=== PATIENT | female | born 1975 | race African-American/Black ===

== ENCOUNTER 2019-12-14 14:05 | Outpatient (CLI) | payer OTHER, SELFPAY ==
--- NOTE | ~2019-12-14 | XR_ITS ---
XR lumbar spine 2-3V 12/14/2019 14:25 Indication: Low back pain Procedure: 3 views lumbar spine Comparison: 04/01/2019 Findings: There is disc narrowing at L4-5 and L5-S1. There are mild lower lumbar facet degenerative c hange. Vertebral body heights are maintained. No fracture or traumatic malalignment. No evidence for spondylolisthesis. There are gallstones. Pedicles are intact. Sacral foramen are symmetric. Impression: 1: Mild lumbar spondylosis. 2: Cholelithiasis. Reviewed, dictated and finalized at location A. Impression: 1: Mild lumbar spondylosis. 2: Cholelithiasis.
== END 2019-12-14 14:06 | disposition home or self-care (01) ==
PROVIDERS: PCP Family Medicine Adolescent Medicine; Visit Provider Family Medicine
DX: M47.896 Other spondylosis, lumbar region (principal); K80.20 Calculus of gallbladder without cholecystitis without obstruction
CPT/HCPCS: 72100

== ENCOUNTER 2020-02-06 00:46 | Emergency (ER) | payer OTHER, SELFPAY ==
--- NOTE | ~2020-02-06 | CT_ITS ---
EXAMINATION: CT abdomen pelvis w con INDICATION: Left-sided abdominal pain TECHNIQUE: Computed tomographic images of the abdomen and pelvis were obtained after the administrati on of 100 cc of Omnipaque 350 intravenous contrast. The dose-length product (DLP) was 1508.32 mGy-cm. Automated exposure control and iterative reconstruction technique were employed. COMPARISON: None available FINDINGS: The lung bases are clear. The heart size is normal. Stones are present in the nondistended gallbladder. The liver, spleen, pancreas, and adrenal glands are normal. The kidneys are unremarkable . The appendix is normal. No pathologically enlarged abdominal or pelvic lymph nodes are identified. There is no free intraperitoneal gas or evidence of bowel obstruction. IMPRESSION: 1. No CT correlate for the patient's symptoms. 2. Cholelithiasis without evidence of cholecystitis. Reviewed, dictated and finalized at location A.
[2020-02-06 01:03] VITALS: BP 166/109; PULSE 111; RESP 20; TEMP 36.8; O2SAT 98
--- NOTE | 2020-02-06 02:09 | ECG_ITS ---
Measurements Intervals [place] Rate: 93 P: 48 [place]: 171 QRS: 32 QRSD: 85 T: 37 QT: 359 QTc: 449 Interpretive Statements SINUS RHYTHM LOW QRS VOLTAGE IN PRECORDIAL LEADS BORDERLINE ECG Electronically Signed On 02-06-2020 9:25:16 CDT by Colin Mccullough D.O.
[2020-02-06 02:36] LABS: Basophils Absolute Auto 0.1 K/mm3 (0.0-0.1); Basophils Percent Auto 0.5 % (0.2-1.2); Eosinophils Absolute Auto 0.1 K/mm3 (0-0.3); Eosinophils Percent Auto 1.3 % (0-4.4); Hematocrit 35.8 % (37.0-47.0); Immature Granulocyte Absolute 0.04 K/mm3 (0.00-0.031); Immature Granulocyte Percent A 0.4 % (0-0.5); Lymphocytes Absolute Auto 2.32 K/mm3 (0.9-3.2); Lymphocytes Percent Auto 21.3 % (18.3-44.2); Mean Corpuscular HGB Conc 30.7 g/dl (32-36); Mean Corpuscular Hemoglobin 24.8 pg (26-34); Mean Corpuscular Volume 80.6 fl (80-100); Mean Platelet Volume 10.7 fl (7.4-10.4); Monocytes Absolute Auto 0.3 K/mm3 (0.1-0.6); Neutrophils Percent Auto 73.5 % (45.5-73.1); Platelet Count Result 248 k/mm3 (150-375); Red Blood Count 4.44 M/mm3 (4.2-5.4); Red Cell Distribution Width 15.4 % (11.5-14.5); White Blood Count 10.9 K/mm3 (4.5-10.0)
[2020-02-06 02:43] VITALS: BP 157/91; PULSE 95; RESP 16; O2SAT 96
[2020-02-06 02:48] LABS: Alanine Aminotransferase 12 U/L (4-35); Albumin Level 4.2 g/dL (3.5-5.1); Alkaline Phosphatase 61 U/L (38-126); Aspartate Amino Transferase 16 U/L (14-36); Bilirubin,Total 0.2 mg/dL (0.2-1.3); Blood Urea Nitrogen 14 mg/dL (7-17); Calcium 9.8 mg/dL (8.4-10.2); Carbon Dioxide 28 mmol/L (22-30); Chloride 103 mmol/L (98-107); Estimated CRCL calculation 127 ml/min; Estimated Glomerular Filt Rate > 60; Glucose 129 mg/dL (65-105); Lipase 33 U/L (23-300); Potassium 3.7 mmol/L (3.4-5.0); Sodium 137 mmol/L (137-145)
--- NOTE | 2020-02-06 02:54 | ED.ABDPAIN ---
HPI - Abdominal Pain General Chief Complaint: Abdominal Pain Stated Complaint: pain LFA and L flank Time Seen by Provider: 02/06/20 01:42 History of Present Illness HPI narrative: Patient is a 44-year-old female who presents ER with 2 issues. She reports she developed some sudden onset left mid abdominal pain this evening. Radiates into her back. No association with diarrhea or urinary frequency or urgency. Patient then tried to go to bed and then woke up with some cramping left forearm pain. That lasted for approximately 30 seconds. No known trauma to her arm. She does report she is been very busy over the last 3 days cleaning her home and detailing her car and taking longer to the laundromat. Patient cannot describe any aggravating or alleviating factors for other for areas of discomfort. Patient then reports upon arrival to the ER she developed some cramping in her left breast right at the sternum that is reproducible with palpation. Related Data Home Medications Medication Instructions Recorded Confirmed cetirizine 10 mg PO 02/06/20 ergocalciferol (vitamin D2) 1,250 mcg PO 02/06/20 hydrochlorothiazide 25 mg PO 02/06/20 hydrocodone-acetaminophen 1 tablet PO 02/06/20 irbesartan 150 mg 02/06/20 metformin 1,000 mg PO 02/06/20 Allergies Allergy/AdvReac Type Severity Reaction Status Date / Time No Known Allergies Allergy Verified 02/06/20 00:52 Review of Systems Review of Systems: All systems reviewed & are unremarkable except as noted in HPI and below Constitutional: Constitutional: Denies chills, Denies fever(s) and Denies weakness ENT: Denies nasal congestion and Denies sore throat Cardiovascular: Cardiovascular: Reports chest pain and Denies radiating jaw, neck or arm pain Respiratory: Respiratory: Denies cough, Denies dyspnea and Denies wheezing Gastrointestinal: Gastrointestinal: Reports abdominal pain, Denies diarrhea, Denies nausea and Denies vomiting Genitourinary: Genitourinary: Denies hematuria, Denies dysuria and Denies urinary incontinence Musculoskeletal: Musculoskeletal: Denies back pain, Denies joint swelling and Reports muscle cramps PMFSH Past Medical History Medical History (Updated 02/06/20 @ 05:09 by Андрей Mahan MD) Cholelithiasis Diabetes type 2, controlled Hypertension Surgical History Surgical History (Updated 02/06/20 @ 02:58 by Андрей Mahan MD) H/O section Social History Social History (Updated 02/06/20 @ 02:58 by Андрей Mahan MD) Smoking status: Former smoker Exam Narrative: Exam Narrative: GENERAL: Well-appearing, morbidly obese, and in no acute distress. HEAD: Normocephalic, atraumatic. ENT: Mucous membranes moist. CHEST: Clear to auscultation. No respiratory distress. Mild anterior chest wall pain left sternal border adjacent to the breast. HEART: Regular rate and rhythm. Normal peripheral pulses. ABDOMEN: Soft, mild left mid abdominal tenderness without guarding, nondistended EXTREMITIES: Normal range of motion. No edema. SKIN: Warm, dry, no rash. NEURO: Alert and oriented x3. PSYCH: Normal mood and affect. Course Course Emergency Course: Patient informed of results. Discharge home. Vital Signs Vital signs: Vital Signs Temperature 98.2 F 02/06/20 01:03 Pulse Rate 111 H 02/06/20 01:03 Respiratory Rate 20 02/06/20 01:03 Blood Pressure 166/109 H 02/06/20 01:03 Pulse Oximetry 98 02/06/20 01:03 Temperature 98.2 F 02/06/20 01:03 Pulse Rate 97 02/06/20 03:53 Respiratory Rate 19 02/06/20 03:53 Blood Pressure 142/79 H 02/06/20 03:53 Pulse Oximetry 96 02/06/20 02:43 MDM - Abdominal Pain Lab Data Result diagrams: 02/06/20 02:29 02/06/20 02:29 Labs: Lab Results 02/06/20 02/06/20 Range/Units 02:29 02:29 WBC 10.9 H (4.5-10.0) K/mm3 RBC 4.44 (4.2-5.4) M/mm3 Hgb 11.0 L (12.0-15.0) g/dL Hct 35.8 L (37.0-47.0) % MCV 80.6 (80-100)
[2020-02-06 03:00] LABS: Troponin I < 0.012 ng/mL (0.000-0.034)
[2020-02-06 03:53] VITALS: BP 142/79; PULSE 97; RESP 19
[2020-02-06 05:17] VITALS: BP 129/90; PULSE 99; RESP 18; O2SAT 96
== END 2020-02-06 05:18 | disposition home or self-care (01) ==
PROVIDERS: Emergency Provider Emergency Medicine; PCP Family Medicine Adolescent Medicine
DX: R10.9 Unspecified abdominal pain (principal); R25.2 Cramp and spasm; I10 Essential (primary) hypertension; E11.9 Type 2 diabetes mellitus without complications; Z79.84 Long term (current) use of oral hypoglycemic drugs
CPT/HCPCS: 36415; 74177; 80053; 81025; 83690; 84484; 85025; 93005; 99284; Q9967

== ENCOUNTER 2021-01-26 08:46 | Outpatient (RCR) | payer OTHER, SELFPAY ==
--- NOTE | 2021-01-26 10:36 | PTOPEVAL ---
PHYSICAL THERAPY EVALUATION AND PLAN OF CARE 01-26-21 Thank you for referring Lex Myers to [facility], for the diagnosis of lumbago with B sciatica.? She is scheduled to be seen for therapy? 2 x/week for 4 weeks. Please review, sign, date and return this plan of care FERMIN. I agree with and certify that the following plan of care is medically necessary. Referring Physician Date Attending Provider: Nhung Leach MD *PT Outpatient Evaluation Document 01/26/21 09:05 PJ (Rec: 01/26/21 10:18 PJ [id number]) Past Medical History Source of Past Medical History Recalled from Previous Visit, Confirmed with Patient/Family Cardiovascular History Hx Hypertension Yes: meds control Respiratory History Hx Sleep Apnea Yes: CPAP- not using Gastrointestinal History Hx Gall Bladder Disease Yes Musculoskeletal History Hx Back Pain Yes: chronic Hx Other Musculoskeletal Disorders Yes: pain in legs, get bolts of pain, comes and goes- different positions Endocrine History Hx Diabetes Yes: meds control HEENT History Hx Other HEENT Disorders Yes: wear glasses Integumentary History Hx Skin Disorders No Significant History Reproductive History Hx Section Yes: x3 Psychosocial History Hx Anxiety Yes Hx Depression Yes Other History Hx Other Medical Conditions Yes: obesity-reports wt gain lately; have not had COVID vaccine Evaluation Information Problem Diagnosis lumbago with B sciatica Onset November 20, 2020 Subjective Information have had chronic back pain, in Query Text:As Reported By Patient/ November started having more Family pain in legs; no trauma or injury to to back; Diagnostic Tests X-Rays For This Problem Yes: narrowing L 4-5-S1, mild DDD Previous Treatments Previous Treatments For This Problem have had PT in past ~ 5 years ago, did water exercises Prior Level of Function Activity Level (Last 3 Months) Occupation not working outside of home Hand Dominance Right Activity of Daily Living Ability Independent Indoor/Home Mobility Independent Community Mobility Independent Stairs Ability Independent Functional Cognition (Planning, Shopping Independent , Taking Medications) Cooking Yes Cleaning Yes Laundry Yes Shopping Yes Driving
--- NOTE | 2021-07-27 15:16 | PCPTNOTE ---
PHYSICAL THERAPY DISCHARGE 07-26-21 LATE ENTRY FOR January 2021 Attending Provider: Nhung LeachMD Patient:Lex Myers Date of :1975 Patient has not returned for any further treatments since 01/26/2021, therefore she will be discharged at this time. Thank you for referring this patient to [facility]. Please review, sign, date and return this discharge summary FERMIN. I have been updated about the patient's current status and I agree with discharge from the above service at this time. Referring Physician Date
== END 2021-04-17 11:47 | disposition home or self-care (01) ==
LOC: ANHPT 08:46
PROVIDERS: PCP Family Medicine; Visit Provider Family Medicine
DX: M54.40 Lumbago with sciatica, unspecified side (principal)
CPT/HCPCS: 97161

== ENCOUNTER 2021-05-16 11:49 | Emergency (ER) | payer OTHER, SELFPAY ==
--- NOTE | ~2021-05-16 | XR_ITS ---
EXAMINATION: XR chest 2V DATE: 05/16/2021 12:34 INDICATION: Tachycardia and lower limb swelling/edema. TECHNIQUE: PA and lateral views of the chest were obtained. COMPARISON: Chest radiograph dated 07/21/2019 FINDINGS: The lungs remain clear with no focal airspace opacities, pulmonary edema, pleural effusion or pneumot horax. The cardiomediastinal silhouette is normal. Mild thoracic spondylosis. IMPRESSION: 1. No acute cardiopulmonary disease. Reviewed, dictated and finalized at location B.
--- NOTE | ~2021-05-16 | US_ITS ---
EXAMINATION: US venous doppler LE EXAM DATE: 05/16/2021 12:31 INDICATION: Bilateral leg pain. TECHNIQUE: Multiple grayscale, color flow and Doppler images of the lower extremity deep venous syste ms bilaterally were obtained and reviewed. There is no prior study for comparison. FINDINGS: Right side: The right common femoral, femoral and profunda veins demonstrate normal color flow, respi ratory variation, augmentation and compressibility. Compressibility, color flow confirmed within the right popliteal, posterior tibial, peroneal, and greater saphenous veins. Left side: The left common femoral, femoral and profunda veins demonstrate normal color flow, respira tory variation, augmentation and compressibility. Compressibility, color flow confirmed within the l eft popliteal, posterior tibial, peroneal, and greater saphenous veins. IMPRESSION: 1. No lower extremity deep venous thrombosis bilaterally. Reviewed, dictated and finalized at location A.
--- NOTE | ~2021-05-16 | CT_ITS ---
EXAMINATION: CT lumbar spine wo [facility] EXAM DATE: 05/16/2021 12:57 INDICATION: Low back pain, lower extremity paresthesias. Electric shooting pain in both legs for paulina ral months. TECHNIQUE: Spiral CT of the lumbar spine was performed without contrast. Axial, coronal and sagittal images lumbar spine were reviewed. The dose-length product (DLP) for this examination was 1201.23 m Gy-cm. The exposure was tailored according to patient size (auto mA exposure control), and iterativ e reconstruction (ASIR) was used as additional dose reduction technique. Correlation is made to x-ray 12/14/2027. FINDINGS: The vertebral bodies are aligned in the AP dimension. Mild diffuse lumbar disc disease. The re are no acute fractures identified. No spondylolysis or endplate erosive change. Paraspinal soft ti ssue is unremarkable. Level by level evaluation: T12-L1: Disc does not extend beyond the endplate margin. Facet arthropathy: None. Neural foraminal stenosis: No stenosis. Central canal stenosis: No stenosis. L1-L2: Disc does not extend beyond the endplate margin. Facet arthropathy: Mild right. Neural foraminal stenosis: No stenosis. Central canal stenosis: No stenosis. L2-L3: There is a mild diffuse disc bulge. Facet arthropathy: None. Neural foraminal stenosis: Mild right. Central canal stenosis: No stenosis. L3-L4: There is a mild diffuse disc bulge. Facet arthropathy: Mild. Neural foraminal stenosis: Mild to moderate right, mild left. Central canal stenosis: Mild. L4-L5: There is a mild diffuse disc bulge. Facet arthropathy: Mild to moderate. Neural foraminal stenosis: Moderate right, mild to moderate left. Central canal stenosis: Mild to moderate. L5-S1: There is a mild diffuse disc bulge. Facet arthropathy: Mild. Neural foraminal stenosis: Mild bilateral. Central canal stenosis: Mild. IMPRESSION: 1. L4-5 moderate right neural foraminal stenosis. 2. Less spondylosis other levels. Reviewed, dictated and finalized at location A.
[2021-05-16 11:53] VITALS: BP 133/85; PULSE 100; RESP 16; TEMP 36.4; O2SAT 98
--- NOTE | 2021-05-16 11:58 | ECG_ITS ---
Measurements Intervals [place] Rate: 100 P: 55 GA: 136 QRS: 36 QRSD: 85 T: 50 QT: 358 QTc: 463 Interpretive Statements SINUS TACHYCARDIA LOW QRS VOLTAGE IN PRECORDIAL LEADS MINIMAL Q WAVES- INFERIOR LEADS BORDERLINE ECG Electronically Signed On 05-16-2021 12:59:45 CDT by Colin Mccullough D.O.
--- NOTE | 2021-05-16 12:07 | PC.NURSE ---
pt out of dept in wheelchair to US.
--- NOTE | 2021-05-16 12:34 | ED.EXTPRO ---
HPI - Extremity Problem General Chief complaint: Extremity Problem,Nontraumatic Stated complaint: bilat. leg pain. L leg pain Time Seen by Provider: 05/16/21 12:18 Source: patient Mode of arrival: ambulatory Limitations: no limitations History of Present Illness HPI Narrative: This is a 45-year-old female that presents to the emergency department for lower extremity pain present over the last couple of months. Reports she feels intermittent shooting nervelike pains in her lower extremities bilaterally. Does have history of low back problems with sciatica. Reports that she noticed when she was outside and exerting herself that her heart rate was in the 120s. She came inside and rested and her heart rate went down to 100. Was sent in by her primary for further evaluation. Denies fever, shortness of breath, lower extremity edema, or erythema. Related Data Home Medications Medication Instructions Recorded Confirmed cetirizine 10 mg PO 02/06/20 ergocalciferol (vitamin D2) 1,250 mcg PO 02/06/20 hydrochlorothiazide 25 mg PO 02/06/20 hydrocodone-acetaminophen 1 tablet PO 02/06/20 irbesartan 150 mg 02/06/20 metformin 1,000 mg PO 02/06/20 Allergies Allergy/AdvReac Type Severity Reaction Status Date / Time No Known Allergies Allergy Verified 05/16/21 13:02 Review of Systems Review of Systems: CONSTITUTIONAL: Denies fever CARDIOVASCULAR: Denies chest pain, or edema. RESPIRATORY: Denies dyspnea. SKIN: Denies rash MUSCULOSKELETAL: Reports joint pain, and myalgia. NEUROLOGIC: Denies numbness All systems reviewed & are unremarkable except as noted in HPI and below PMFSH Past Medical History Medical History (Updated 05/16/21 @ 14:04 by Janee Deleon PA-C) Cholelithiasis Diabetes type 2, controlled Hypertension Surgical History Surgical History (Updated 02/06/20 @ 02:58 by Андрей Mahan MD) H/O section Social History Social History (Updated 02/06/20 @ 02:58 by Андрей Mahan MD) Smoking status: Former smoker Exam Narrative: GENERAL: Well-appearing, obese, and in no acute distress. HEAD: Normocephalic, atraumatic. EYES: EOMI. CHEST: Clear to auscultation. No respiratory distress. No wheezes rales or rhonchi HEART: Regular rate and rhythm. No murmur heard. Normal peripheral pulses. ABDOMEN: Soft, nontender, nondistended, normal active bowel sounds. EXTREMITIES: Normal range of motion. No edema. Strength equal in bilateral lower extremities (5/5). Normal DP pulses SKIN: Warm, dry, no rash. NEURO: No focal deficits. Alert and oriented x3. PSYCH: Normal mood and affect Course Vital Signs Vital signs: Vital Signs Temperature 97.5 F L 05/16/21 11:53 Pulse Rate 100 05/16/21 11:53 Respiratory Rate 16 05/16/21 11:53 Blood Pressure 133/85 05/16/21 11:53 Pulse Oximetry 98 05/16/21 11:53 Temperature 97.5 F L 05/16/21 11:53 Pulse Rate 100 05/16/21 11:53 Respiratory Rate 16 05/16/21 11:53 Blood Pressure 133/85 05/16/21 11:53 Pulse Oximetry 98 05/16/21 11:53 MDM - Extremity (Nontraumatic) MDM Narrative Medical decision making narrative: Patient presents to the emergency department for bilateral lower extremity pain present intermittent over the last couple of months. Reports it feels like a nerve pain. She is neurologically intact. She does have history of problems with her low back. No recent injury or trauma. Her vitals are stable. CBC does show microcytic anemia with hemoglobin of 9.2. Patient does have history of anemia, reports heavy menstrual cycles. Metabolic panel without concerning findings. BNP is normal. Bilateral lower extremity venous Doppler without evidence of DVT. Chest x-ray without acute cardiopulmonary abnormality. CT scan lumbar spine shows L4/5 moderate right neural foraminal stenosis. EKG without concerning findings. Patient was updated on case findings. She is to follow-up with her primary care doctor for further evalua
[2021-05-16 13:24] LABS: Basophils Percent Auto 0.4 % (0.2-1.2); Eosinophils Absolute Auto 0.1 K/mm3 (0-0.3); Eosinophils Percent Auto 0.9 % (0-4.4); Hematocrit 31.7 % (37.0-47.0); Hemoglobin 9.2 g/dL (12.0-15.0); Immature Granulocyte Absolute 0.02 K/mm3 (0.00-0.031); Immature Granulocyte Percent A 0.2 % (0-0.5); Lymphocytes Absolute Auto 1.84 K/mm3 (0.9-3.2); Lymphocytes Percent Auto 20.2 % (18.3-44.2); Mean Corpuscular Hemoglobin 22.2 pg (26-34); Mean Corpuscular Volume 76.6 fl (80-100); Mean Platelet Volume 10.1 fl (7.4-10.4); Monocytes Absolute Auto 0.4 K/mm3 (0.1-0.6); Monocytes Percent Auto 4.8 % (2.6-8.5); Neutrophils Absolute Auto 6.7 K/mm3 (1.3-6.7); Neutrophils Percent Auto 73.5 % (45.5-73.1); Platelet Count Result 280 k/mm3 (150-375); Red Blood Count 4.14 M/mm3 (4.2-5.4); White Blood Count 9.1 K/mm3 (4.5-10.0)
--- NOTE | 2021-05-16 13:36 | PC.NURSE ---
pt states she will sign something that she isn't . states her tubes are tied .
[2021-05-16 13:37] LABS: Anion Gap 9 mmol/L (8-16); Blood Urea Nitrogen 23 mg/dL (7-17); Calcium 9.1 mg/dL (8.4-10.2); Carbon Dioxide 24 mmol/L (22-30); Chloride 101 mmol/L (98-107); Estimated CRCL calculation 83 ml/min; Estimated Glomerular Filt Rate > 60; Glucose 130 mg/dL (65-110); Potassium 3.9 mmol/L (3.4-5.0); Sodium 134 mmol/L (137-145)
[2021-05-16 13:44] LABS: INR 0.9; Prothrombin Time 11.9 Seconds (11.1-14.7)
[2021-05-16 13:45] LABS: Partial Thromboplastin Time 23.5 SECONDS (22.3-36.8)
[2021-05-16 13:47] LABS: NT Pro B Type Natriuretic Pept 19 pg/mL (5-100)
[2021-05-16 14:47] LABS: Hypochromasia 1+ (NORMAL); Platelet Estimate Adequate (Adequate); Poikilocytosis 1+ (NORMAL)
== END 2021-05-16 14:22 | disposition home or self-care (01) ==
PROVIDERS: Physician Assistant; Emergency Provider Emergency Medicine; PCP Family Medicine
DX: M54.16 Radiculopathy, lumbar region (principal); D64.9 Anemia, unspecified; R00.0 Tachycardia, unspecified; E11.9 Type 2 diabetes mellitus without complications; Z79.84 Long term (current) use of oral hypoglycemic drugs; I10 Essential (primary) hypertension
CPT/HCPCS: 36415; 71046; 72131; 80048; 83880; 85025; 85610; 85730; 93005; 93970; 99284

== ENCOUNTER 2021-07-02 14:08 | Outpatient (CLI) | payer OTHER, SELFPAY ==
--- NOTE | ~2021-07-02 | XR_ITS ---
XR foot LT min 3V DATE: 07/02/2021 14:40 INDICATION: Bilateral foot pain TECHNIQUE: 3 weightbearing views COMPARISON: None FINDINGS: There is prominent plantar and posterior calcaneal enthesopathy. There is pes planus. There is hallux valgus and bunion deformity. There is osteoarthritis at the first metatarsophalangeal joint. IMPRESSION: Hallux valgus and bunion deformity Pes planus Calcaneal enthesopathy Reviewed, dictated and finalized at location B.
--- NOTE | ~2021-07-02 | XR_ITS ---
XR foot RT min 3V DATE: 07/02/2021 14:40 INDICATION: Bilateral foot pain TECHNIQUE: 3 weightbearing views COMPARISON: None FINDINGS: There is pes planus. There is prominent plantar and moderate posterior calcaneal enthesopathy. Mild hallux valgus. There is mild osteoarthritic change at the first metatarsophalangeal joint. No fracture or dislocation, periosteal reaction or bone destruction. IMPRESSION: Pes planus Hallux valgus Plantar and posterior calcaneal enthesopathy Mild osteoarthritis at first metatarsophalangeal joint Reviewed, dictated and finalized at location B.
== END 2021-07-02 14:09 | disposition home or self-care (01) ==
LOC: ANHIMG 14:13
PROVIDERS: PCP Family Medicine; Visit Provider Podiatrist Foot & Ankle Surgery
DX: M20.11 Hallux valgus (acquired), right foot (principal); M19.071 Primary osteoarthritis, right ankle and foot; M77.31 Calcaneal spur, right foot; M20.12 Hallux valgus (acquired), left foot; M77.32 Calcaneal spur, left foot; M21.42 Flat foot [pes planus] (acquired), left foot; M21.41 Flat foot [pes planus] (acquired), right foot
CPT/HCPCS: 73630

== ENCOUNTER 2021-07-10 13:08 | Emergency (ER) | payer OTHER, SELFPAY ==
--- NOTE | ~2021-07-10 | XR_ITS ---
EXAMINATION: XR knee LT 3V DATE: 07/10/2021 15:24 INDICATION: Left knee pain TECHNIQUE: Three views of the left knee were obtained. COMPARISON: 02/20/2007 FINDINGS: Alignment is normal. No fracture or osteochondral lesion. There is mild tricompartmental os teoarthritis characterized by tiny marginal osteophytes. No joint effusion/synovitis. Soft tissues a re unremarkable. IMPRESSION: 1. No acute osseous abnormality. Reviewed, dictated and finalized at location A.
[2021-07-10 13:22] VITALS: BP 135/88; PULSE 100; RESP 20; TEMP 36.6; O2SAT 99
--- NOTE | 2021-07-10 15:42 | ED.GENADULT ---
HPI - General Adult General Chief complaint: Extremity Injury, Lower Stated complaint: Pain in my leg Time Seen by Provider: 07/10/21 14:13 Source: patient, RN notes reviewed and old records reviewed Mode of arrival: ambulatory Limitations: no limitations History of Present Illness HPI narrative: Patient is a 45-year-old female who presents with lateral left knee pain described as a stabbing intermittent pain patient has seen primary care for this have bilateral Dopplers and blood work performed has been taken hydrocodone with minimal improvement pain does not radiate made worse with activity and movement Related Data Home Medications Medication Instructions Recorded Confirmed cetirizine 10 mg PO 02/06/20 ergocalciferol (vitamin D2) 1,250 mcg PO 02/06/20 hydrochlorothiazide 25 mg PO 02/06/20 hydrocodone-acetaminophen 1 tablet PO 02/06/20 irbesartan 150 mg 02/06/20 metformin 1,000 mg PO 02/06/20 Allergies Allergy/AdvReac Type Severity Reaction Status Date / Time No Known Allergies Allergy Verified 05/16/21 13:02 Review of Systems Review of Systems: All systems reviewed & are unremarkable except as noted in HPI and below PMFSH Past Medical History Medical History Cholelithiasis Diabetes type 2, controlled Hypertension Surgical History Surgical History H/O section Social History Social History Smoking status: Former smoker Exam Narrative: GENERAL: Well-appearing, well-nourished, and in no acute distress. HEAD: Normocephalic, atraumatic. EYES: PERRLA and EOMI. ENT: Nares clear, no rhinorrhea or epistaxis. Mucous membranes moist. CHEST: Clear to auscultation. No respiratory distress. No wheezes rales or rhonchi HEART: Regular rate and rhythm. No murmur heard. Normal peripheral pulses. EXTREMITIES: Normal range of motion. No edema. Point tenderness of the lateral aspect of the left knee joint no deformities noted remainder of extremity and knee nontender SKIN: Warm, dry, no rash. NEURO: No focal deficits. Alert and oriented x3. Neurovascularly intact. Capillary refill less than 2 seconds PSYCH: Normal mood and affect. Course Course Emergency Course: Patient in the room nondistressed will be referred to primary care and orthopedics for evaluation of her knee pain she is afebrile nontoxic-appearing ABCs and vital signs intact and stable Vital Signs Vital signs: Vital Signs Temperature 97.9 F 07/10/21 13:22 Pulse Rate 100 07/10/21 13:22 Respiratory Rate 20 07/10/21 13:22 Blood Pressure 135/88 07/10/21 13:22 Pulse Oximetry 99 07/10/21 13:22 Temperature 97.9 F 07/10/21 13:22 Pulse Rate 100 07/10/21 13:22 Respiratory Rate 20 07/10/21 13:22 Blood Pressure 135/88 07/10/21 13:22 Pulse Oximetry 99 07/10/21 13:22 Medical Decision Making MDM Narrative Medical decision making narrative: Patients injury or pain is consistent with musculoskeletal etiology. No signs of neurological or vascular compromise on exam. Compartments and tisues are soft without signs of compartment syndrome. Pain is felt appropriate for further evaluation on an outpatient basis. Vital Signs Vital Signs: Vital Signs Temperature 97.9 F 07/10/21 13:22 Pulse Rate 100 07/10/21 13:22 Respiratory Rate 20 07/10/21 13:22 Blood Pressure 135/88 07/10/21 13:22 Pulse Oximetry 99 07/10/21 13:22 Temperature 97.9 F 07/10/21 13:22 Pulse Rate 100 07/10/21 13:22 Respiratory Rate 20 07/10/21 13:22 Blood Pressure 135/88 07/10/21 13:22 Pulse Oximetry 99 07/10/21 13:22 Imaging Data Radiologist's impression: ITS Impressions Knee X-Ray 07/10/21 15:30 IMPRESSION: 1. No acute osseous abnormality. Discharge Plan Discharge Clinical Impression: Acute pain of left knee
[2021-07-10 16:12] VITALS: BP 118/76; PULSE 84; RESP 14; O2SAT 100
== END 2021-07-10 16:14 | disposition home or self-care (01) ==
PROVIDERS: Emergency Provider Emergency Medicine; PCP Family Medicine
DX: M25.562 Pain in left knee (principal); E11.9 Type 2 diabetes mellitus without complications; I10 Essential (primary) hypertension; Z79.84 Long term (current) use of oral hypoglycemic drugs
CPT/HCPCS: 73562; 99283

== ENCOUNTER 2022-03-06 22:29 | Emergency (ER) | payer OTHER, SELFPAY ==
[2022-03-06 22:31] VITALS: BP 124/78; PULSE 98; RESP 18; TEMP 36.4; O2SAT 98
--- NOTE | 2022-03-06 23:17 | ECG_ITS ---
Measurements Intervals [place] Rate: 99 P: 49 OR: 167 QRS: 29 QRSD: 86 T: 48 QT: 367 QTc: 473 Interpretive Statements SINUS RHYTHM COMPARED TO ECG 05/16/2021 12:00:38 SINUS RHYTHM NOW PRESENT Electronically Signed On 03-07-2022 11:15:01 CDT by Vickie Herring MD
[2022-03-07 00:29] LABS: Basophils Percent Auto 0.3 % (0.2-1.2); Eosinophils Absolute Auto 0.1 K/mm3 (0-0.3); Eosinophils Percent Auto 1.2 % (0-4.4); Hematocrit 39.8 % (37.0-47.0); Hemoglobin 12.5 g/dL (12.0-15.0); Immature Granulocyte Absolute 0.03 K/mm3 (0.00-0.031); Immature Granulocyte Percent A 0.3 % (0-0.5); Lymphocytes Absolute Auto 2.59 K/mm3 (0.9-3.2); Lymphocytes Percent Auto 25.7 % (18.3-44.2); Mean Corpuscular HGB Conc 31.4 g/dl (32-36); Mean Corpuscular Volume 82.7 fl (80-100); Mean Platelet Volume 11.2 fl (7.4-10.4); Monocytes Absolute Auto 0.5 K/mm3 (0.1-0.6); Monocytes Percent Auto 5.3 % (2.6-8.5); Neutrophils Absolute Auto 6.8 K/mm3 (1.3-6.7); Neutrophils Percent Auto 67.2 % (45.5-73.1); Platelet Count Result 253 k/mm3 (150-375); Red Blood Count 4.81 M/mm3 (4.2-5.4); Red Cell Distribution Width 15.3 % (11.5-14.5); White Blood Count 10.1 K/mm3 (4.5-10.0)
[2022-03-07 00:35] LABS: Anion Gap 8 mmol/L (8-16); Blood Urea Nitrogen 42 mg/dL (7-17); Carbon Dioxide 24 mmol/L (22-30); Chloride 101 mmol/L (98-107); Estimated CRCL calculation 68 ml/min; Estimated Glomerular Filt Rate 59; Glucose 117 mg/dL (65-110); Potassium 3.4 mmol/L (3.4-5.0); Sodium 133 mmol/L (137-145)
[2022-03-07 00:47] LABS: Troponin I < 0.012 ng/mL (0.000-0.034)
--- NOTE | 2022-03-07 00:47 | ED.GENADULT ---
HPI - General Adult General Chief complaint: Arrhythmia/Palpitations Stated complaint: increased HR Time Seen by Provider: 03/06/22 22:42 Source: patient and family Mode of arrival: ambulatory Limitations: no limitations History of Present Illness HPI narrative: 46-year-old with a history of hypertension here with complaints of elevated heart rate since last few days. Patient states that her primary doctor has recently changed her blood pressure medication. Patient is presently on losartan and Dyazide she denies any fever or chills. No history of nausea or vomiting. Related Data Home Medications Medication Instructions Recorded Confirmed cetirizine 10 mg tablet 10 mg PO 02/06/20 ergocalciferol (vitamin D2) 1,250 1,250 mcg PO 02/06/20 mcg (50,000 unit) capsule hydrochlorothiazide 25 mg tablet 25 mg PO 02/06/20 hydrocodone 5 mg-acetaminophen 325 1 tablet PO 02/06/20 mg tablet irbesartan 150 mg tablet 150 mg 02/06/20 metformin 1,000 mg tablet 1,000 mg PO 02/06/20 Allergies Allergy/AdvReac Type Severity Reaction Status Date / Time No Known Allergies Allergy Verified 03/06/22 23:12 Review of Systems Review of Systems: All systems reviewed & are unremarkable except as noted in HPI and below Constitutional: Constitutional: Reports no additional constitutional complaints Eyes: Eyes: Reports no additional eye complaints ENT: Reports system reviewed and no additional complaints, except as documented Cardiovascular: Cardiovascular: Reports no additional cardiovascular complaints Respiratory: Respiratory: Reports no additional respiratory complaints Gastrointestinal: Gastrointestinal: Reports no additional gastrointestinal complaints Musculoskeletal: Musculoskeletal: Reports no additional musculoskeletal complaints Neurologic: Reports system reviewed and no additional complaints, except as documented [facility] Past Medical History Medical History Cholelithiasis Diabetes type 2, controlled Hypertension Sleep apnea Surgical History Surgical History H/O section x3 (1997, 1999, 2015) History of tubal ligation (~05/01/16) Social History Social History Smoking status: Former smoker Alcohol intake: current Exam Narrative: GENERAL: Well-appearing, well-nourished, and in no acute distress. HEAD: Normocephalic, atraumatic. EYES: PERRLA and EOMI.. NECK: Supple. CHEST: Clear to auscultation. No respiratory distress. HEART: Regular rate and rhythm. No murmur heard. Normal peripheral pulses. ABDOMEN: Soft, nontender, nondistended, normal active bowel sounds. EXTREMITIES: Normal range of motion. No edema. SKIN: Warm, dry, no rash. NEURO: No focal deficits. Alert and oriented x3. PSYCH: Normal mood and affect. Course Course Emergency Course: Inform patient about her lab work. Patient is hesitant to take medication. I recommended her to follow-up with her primary doctor tomorrow for medication adjustment. I have been in the room 3 times tried to explain to the patient about her lab work, about the medication, heart rate I advised her again to follow-up with her primary doctor in the next few days to recheck her blood pressure and heart rate Vital Signs Vital signs: Vital Signs Temperature 36.4 C 03/06/22 22:31 Pulse Rate 98 03/06/22 22:31 Respiratory Rate 18 03/06/22 22:31 Blood Pressure 124/78 03/06/22 22:31 Pulse Oximetry 98 03/06/22 22:31 Temperature 36.4 C 03/06/22 22:31 Pulse Rate 98 03/06/22 22:31 Respiratory Rate 18 03/06/22 22:31 Blood Pressure 124/78 03/06/22 22:31 Pulse Oximetry 98 03/06/22 22:31 Medical Decision Making Vital Signs Vital Signs: Vital Signs Temperature 36.4 C 03/06/22 22:31 Pulse Rate 98 03/06/22 22:31 Respiratory Rate 18 03/06/22 22:31 Bloo
--- NOTE | 2022-03-07 01:03 | PC.NURSE ---
per EDP radha no dose of metoprolol needed
[2022-03-07 01:18] VITALS: BP 118/79; PULSE 105; RESP 16; O2SAT 98
== END 2022-03-07 01:25 | disposition home or self-care (01) ==
PROVIDERS: Emergency Provider Family Medicine; PCP Family Medicine
DX: R00.2 Palpitations (principal); E11.9 Type 2 diabetes mellitus without complications; I10 Essential (primary) hypertension; Z79.84 Long term (current) use of oral hypoglycemic drugs
CPT/HCPCS: 36415; 80048; 84484; 85025; 93005; 99284

== ENCOUNTER 2022-06-08 21:12 | Emergency (ER) | payer OTHER, SELFPAY ==
[2022-06-08 21:16] VITALS: BP 138/82; PULSE 96; RESP 16; TEMP 36.9; O2SAT 97
--- NOTE | 2022-06-08 22:04 | ED.GENADULT ---
HPI - General Adult General Chief complaint: Urogenital-Female Stated complaint: vaginal issues Time Seen by Provider: 06/08/22 21:14 History of Present Illness HPI narrative: 46-year-old female presents the emergency room for a rash on her vagina. Patient states her and her used a new lubricant and she feels that may be the offending agent. Patient also states that she was out in the yard collecting brush and she might have been exposed poison hao. Has not tried any topicals or Benadryl for her symptoms. Related Data Home Medications Medication Instructions Recorded Confirmed ergocalciferol (vitamin D2) 1,250 1,250 mcg PO 02/06/20 mcg (50,000 unit) capsule hydrocodone 5 mg-acetaminophen 325 1 tablet PO 02/06/20 mg tablet atorvastatin 40 mg tablet mg 06/08/22 06/08/22 gabapentin 300 mg capsule mg 06/08/22 triamterene 75 tablet 06/08/22 mg-hydrochlorothiazide 50 mg tablet Allergies Allergy/AdvReac Type Severity Reaction Status Date / Time No Known Allergies Allergy Verified 06/08/22 21:45 Review of Systems Review of Systems: CONSTITUTIONAL: Denies fever, chills, or sweats. EYES: Denies visual changes, redness, or discharge. ENT: Denies rhinorrhea, congestion, sore throat, or otalgia. CARDIOVASCULAR: Denies chest pain, palpitations, or edema. RESPIRATORY: Denies cough or dyspnea. GASTROINTESTINAL: Denies abdominal pain, nausea, vomiting, or diarrhea. GENITOURINARY: Denies dysuria or hematuria. SKIN: Reports rash to her genitalia MUSCULOSKELETAL: Denies back pain, joint pain, or myalgia. NEUROLOGIC: Denies headache, numbness, dizziness, or weakness. PSYCHIATRIC: Denies anxiety or depression. [facility] Past Medical History Medical History Cholelithiasis Diabetes type 2, controlled Hypertension Sleep apnea Surgical History Surgical History H/O section x3 (1997, 1999, 2015) History of tubal ligation (~05/01/16) Social History Social History Smoking status: Former smoker Alcohol intake: current Exam Narrative: GENERAL: Well-appearing, well-nourished, no physical limitations, and in no acute distress. HEAD: Normocephalic, atraumatic. EYES: Conjunctivae normal, PERRLA and EOMI. CHEST: Clear to auscultation. No respiratory distress. No wheezes rales or rhonchi. No tenderness. HEART: Regular rate and rhythm. No murmur heard. Normal peripheral pulses. : Normal external female exam. BACK: No CVA tenderness; No cervical/thoracic/lumbar tenderness, step-offs, bony abnormality; FROM EXTREMITIES: Normal range of motion. No edema. No clubbing or cyanosis SKIN: Erythematous macular rash noted to the pubic area and to the left lateral side of the vagina NEURO: No focal deficits. Alert and oriented x3. MAEW. CN's II-XI intact bilaterally, normal gait PSYCH: Cooperative. Normal mood and affect. Course Vital Signs Vital signs: Vital Signs Temperature 36.9 C 06/08/22 21:16 Pulse Rate 96 06/08/22 21:16 Respiratory Rate 16 06/08/22 21:16 Blood Pressure 138/82 06/08/22 21:16 Pulse Oximetry 97 06/08/22 21:16 Oxygen Delivery Room Air 06/08/22 21:16 Temperature 36.9 C 06/08/22 21:16 Pulse Rate 96 06/08/22 21:16 Respiratory Rate 16 06/08/22 21:16 Blood Pressure 138/82 06/08/22 21:16 Pulse Oximetry 97 06/08/22 21:16 Oxygen Delivery Room Air 06/08/22 21:16 Medical Decision Making Vital Signs Vital Signs: Vital Signs Temperature 36.9 C 06/08/22 21:16 Pulse Rate 96 06/08/22 21:16 Respiratory Rate 16 06/08/22 21:16 Blood Pressure 138/82 06/08/22 21:16 Pulse Oximetry 97 06/08/22 21:16 Oxygen Delivery Room Air 06/08/22 21:16 Temperature 36.9 C 06/08/22 21:16 Pulse Rate 96 06/08/22 21:16 Respiratory Rate 16 06/08/22 21:16 Blood Pressure 13
[2022-06-08 22:25] VITALS: BP 127/90; PULSE 96; RESP 15; O2SAT 97
[2022-06-08] MEDS: diphenhydrAMINE HCl CAP 25 MG CAPSULE 50 MG PO (22:27)
== END 2022-06-08 22:30 | disposition home or self-care (01) ==
PROVIDERS: Emergency Provider Nurse Practitioner Family; PCP Family Medicine
DX: L25.9 Unspecified contact dermatitis, unspecified cause (principal); I10 Essential (primary) hypertension; E11.9 Type 2 diabetes mellitus without complications; G47.30 Sleep apnea, unspecified; Z87.891 Personal history of nicotine dependence
CPT/HCPCS: 99283; A9270

== ENCOUNTER 2022-10-27 01:03 | Emergency (ER) | payer OTHER, SELFPAY ==
--- NOTE | ~2022-10-27 | XR_ITS ---
EXAMINATION: XR chest 1V portable INDICATION: Fever TECHNIQUE: Portable AP chest at 0145 hours COMPARISON: 04/26/2021 FINDINGS: The lungs are free of acute opacities. No pleural effusion or pneumothorax. The cardiomedia stinal silhouette is normal. IMPRESSION: 1. No acute cardiopulmonary abnormality. Reviewed, dictated and finalized at location A. E[facility]OST
[2022-10-27 01:06] VITALS: BP 142/91; PULSE 97; RESP 17; TEMP 36.1; O2SAT 97
[2022-10-27 01:13] VITALS: TEMP 36.9
--- NOTE | 2022-10-27 01:33 | ED.GENADULT ---
HPI - General Adult General Chief complaint: Fever Stated complaint: Fever, sent by PCP for blood work Time Seen by Provider: 10/27/22 01:16 History of Present Illness HPI narrative: 47-year-old female presenting to the emergency department for evaluation of low-grade fever and body aches. Patient states the symptoms have been ongoing for approximately the last 2 days. Patient reports that she was having issues with body aches previously and did stop taking her losartan. Patient discussed her symptoms with her primary care physician and she was deferred to the emergency department for a UA and labs. Patient states that she does have intermittent cough. Patient does report body aches. Patient has been having a low-grade fever. Patient does have a history of cholelithiasis, type 2 diabetes, hypertension and sleep apnea Related Data Home Medications Medication Instructions Recorded Confirmed ergocalciferol (vitamin D2) 1,250 1,250 mcg PO 02/06/20 mcg (50,000 unit) capsule hydrocodone 5 mg-acetaminophen 325 1 tablet PO 02/06/20 mg tablet atorvastatin 40 mg tablet mg 06/08/22 06/08/22 gabapentin 300 mg capsule mg 06/08/22 triamterene 75 tablet 06/08/22 mg-hydrochlorothiazide 50 mg tablet Allergies Allergy/AdvReac Type Severity Reaction Status Date / Time No Known Allergies Allergy Verified 10/27/22 01:09 Review of Systems Review of Systems: CONSTITUTIONAL: Denies fever, chills, or sweats. EYES: Denies visual changes, redness, or discharge. ENT: Denies rhinorrhea, congestion, sore throat, or otalgia. CARDIOVASCULAR: Denies chest pain, palpitations, or edema. RESPIRATORY: Denies cough or dyspnea. GASTROINTESTINAL: Denies abdominal pain, nausea, vomiting, or diarrhea. GENITOURINARY: Denies dysuria or hematuria. SKIN: Denies rash or itching. MUSCULOSKELETAL: Denies back pain, joint pain, or myalgia. NEUROLOGIC: Denies headache, numbness, or weakness. PSYCHIATRIC: Denies anxiety or depression. [facility] Past Medical History Medical History Cholelithiasis Diabetes type 2, controlled Hypertension Sleep apnea Surgical History Surgical History H/O section x3 (1997, 1999, 2015) History of tubal ligation (~05/01/16) Social History Social History Smoking status: Former smoker Alcohol intake: current Course Course Emergency Course: Patient is afebrile with no leukocytosis. Patient's hemoglobin is 10.9 which is within her normal range. Patient's electrolytes are similar to her baseline. Normal kidney function. UA shows no evidence of urinary tract infection. Patient CPK is not elevated so low concern for rhabdomyolysis from her medications. Patient is negative for influenza RSV and COVID. Patient was also negative for strep. Chest x-ray showed no acute cardiopulmonary normality. Patient's low-grade fever at home and body aches may still be secondary to a viral illness. Pneumonia, influenza, COVID, strep throat, RSV, rhabdomyolysis, urinary tract infection or all ruled out during this visit. Patient was informed on reasons to return to the department and on the importance of close follow-up with her primary care physician for additional outpatient testing for her symptoms. All question concerns were addressed. Vital Signs Vital signs: Vital Signs Temperature 97.0 F L 10/27/22 01:06 Pulse Rate 97 10/27/22 01:06 Respiratory Rate 17 10/27/22 01:06 Blood Pressure 142/91 H 10/27/22 01:06 Pulse Oximetry 97 10/27/22 01:06 Oxygen Delivery Room Air 10/27/22 01:06 Temperature 98.5 F 10/27/22 01:13 Pulse Rate 96 10/27/22 03:09 Respiratory Rate 14 10/27/22 03:09 Blood Pressure 130/87 10/27/22 03:09 Pulse Oximetry 96 10/27/22 03:09 Oxygen Delivery Room Air 10/27/22 01:06 Medical Decision
[2022-10-27 01:52] LABS: Basophils Percent Auto 0.5 % (0.2-1.2); Eosinophils Absolute Auto 0.1 K/mm3 (0-0.3); Eosinophils Percent Auto 0.8 % (0-4.4); Hematocrit 34.5 % (37.0-47.0); Hemoglobin 10.9 g/dL (12.0-15.0); Immature Granulocyte Absolute 0.03 K/mm3 (0.00-0.031); Immature Granulocyte Percent A 0.3 % (0-0.5); Lymphocytes Absolute Auto 1.83 K/mm3 (0.9-3.2); Lymphocytes Percent Auto 20.7 % (18.3-44.2); Mean Corpuscular HGB Conc 31.6 g/dl (32-36); Mean Corpuscular Hemoglobin 26.5 pg (26-34); Mean Corpuscular Volume 83.9 fl (80-100); Mean Platelet Volume 11.1 fl (7.4-10.4); Monocytes Absolute Auto 0.5 K/mm3 (0.1-0.6); Monocytes Percent Auto 5.8 % (2.6-8.5); Neutrophils Absolute Auto 6.3 K/mm3 (1.3-6.7); Neutrophils Percent Auto 71.9 % (45.5-73.1); Platelet Count Result 201 k/mm3 (150-375); Red Blood Count 4.11 M/mm3 (4.2-5.4); Red Cell Distribution Width 14.4 % (11.5-14.5); White Blood Count 8.8 K/mm3 (4.5-10.0)
[2022-10-27 02:01] LABS: Alanine Aminotransferase 15 U/L (6-35); Albumin Level 3.6 g/dL (3.5-5.1); Alkaline Phosphatase 63 U/L (38-126); Anion Gap 1 mmol/L (8-16); Aspartate Amino Transferase 17 U/L (14-36); Bilirubin,Total 0.5 mg/dL (0.2-1.3); Blood Urea Nitrogen 20 mg/dL (7-17); Calcium 8.4 mg/dL (8.4-10.2); Carbon Dioxide 29 mmol/L (22-30); Chloride 104 mmol/L (98-107); Creatine Kinase 34 U/L (30-135); Estimated Glomerular Filt Rate > 60; Glucose 134 mg/dL (65-110); Potassium 3.9 mmol/L (3.4-5.0); Sodium 134 mmol/L (137-145)
[2022-10-27 02:27] LABS: Add Urine Microscopic? NO; Appearance Urine Clear (Clear); Bilirubin Urine Negative (Negative); Blood Urine Negative (Negative); Color Urine Yellow (Yellow); Glucose Urine UA Negative (Negative); Ketones Urine Negative (Negative); Leukocyte Esterase Ur Negative LEU/UL (Negative); Nitrate Urine Negative (Negative); Protein Urine Negative (Negative); Specific Grav Ur <= 1.005 (1.001-1.035); Urobilinogen Urine 0.2 mg/dL (<2.0); pH Urine 5.5 (5.0-9.0)
[2022-10-27 02:29] LABS: Influenza A QL RT-PCR Negative (Negative); Influenza B QL RT-PCR Negative (Negative); RSV RNA, RT-PCR Negative (Negative); SARS-CoV-2 RNA PCR Negative
[2022-10-27 02:45] LABS: Strep Group A RT-PCR NOT DETECTED (Negative)
[2022-10-27 02:52] LABS: Bacteria Urine Trace /hpf; Mucus Urine Rare /lpf; RBC Urine 0-2 /hpf (0-2); Squamous Epithelial Cell Urine Rare /hpf (Few); WBC Urine 0-3 /hpf
[2022-10-27 03:09] VITALS: BP 130/87; PULSE 96; RESP 14; O2SAT 96
== END 2022-10-27 04:05 | disposition home or self-care (01) ==
PROVIDERS: Emergency Provider Emergency Medicine; PCP Family Medicine
DX: R50.9 Fever, unspecified (principal); M79.10 Myalgia, unspecified site; Z20.822 Contact with and (suspected) exposure to COVID-19; E11.9 Type 2 diabetes mellitus without complications; I10 Essential (primary) hypertension; G47.30 Sleep apnea, unspecified; Z87.891 Personal history of nicotine dependence
CPT/HCPCS: 36415; 71045; 80053; 81003; 81025; 82550; 85025; 87637; 87651; 99283

== ENCOUNTER 2022-11-10 22:39 | Emergency (ER) | payer OTHER, SELFPAY ==
[2022-11-10 22:47] VITALS: BP 128/84; PULSE 78; RESP 18; TEMP 36.4; O2SAT 97
--- NOTE | 2022-11-10 23:50 | PC.NURSE ---
Patient informed insurance writer that since her blood pressure was normal after her medications she wasn't going to wait to be seen and left with her family member.
== END 2022-11-10 23:50 | disposition left against medical advice (07) ==
PROVIDERS: PCP Family Medicine
DX: I10 Essential (primary) hypertension (principal)
CPT/HCPCS: 99199

== ENCOUNTER 2023-05-18 18:04 | Emergency (ER) | payer OTHER, SELFPAY ==
--- NOTE | ~2023-05-18 | XR_ITS ---
EXAMINATION: XR chest 2V DATE: 05/18/2023 20:16 INDICATION: Hypoglycemia TECHNIQUE: PA and lateral views of the chest were obtained. COMPARISON: Chest radiograph dated 10/27/2022 and 05/16/2021 FINDINGS: Unchanged mild left basilar atelectasis/scarring. No other airspace opacities, pulmonary edema, pleur al effusion or pneumothorax.. The cardiomediastinal silhouette is normal. There are bridging osteophy moo at multiple levels in the spine, consistent with diffuse idiopathic skeletal hyperostosis (DISH). IMPRESSION: 1. Unchanged mild left basilar atelectasis/scarring. Reviewed, dictated and finalized at location A.
[2023-05-18 18:09] VITALS: BP 134/84; PULSE 87; RESP 18; TEMP 36.3; O2SAT 98
[2023-05-18 18:30] VITALS: BP 136/82; PULSE 90; RESP 18; O2SAT 98
[2023-05-18 18:37] VITALS: RESP 20; O2SAT 99
[2023-05-18 18:59] LABS: Glucose Point of Care 116 mg/dl (65-105)
--- NOTE | 2023-05-18 19:42 | ED.RECABL ---
HPI - Recheck/Abnormal Lab/Rx General Chief Complaint: Recheck/Abnormal Lab/Rx Stated Complaint: feeling shaky Time Seen by Provider: 05/18/23 18:44 History of Present Illness HPI narrative: Patient is a 47-year-old female with a history of hypertension presenting with an episode of hypoglycemia. Patient states that she recently started intermittent fasting because her A1c came back at 7.0 earlier this month. States that she has always been able to manage her blood sugars with her diet. States that for the last several days she has been doing fasting to help with her sugars. Today, she had an episode where she felt shaky, sweaty, with a headache. States that she checked her sugar and it was 67. She immediately drank some orange juice and a piece of chocolate. States that she did start to feel better and she was able to lay down for a while. States that she had another episode where she felt shaky and sweaty. She rechecked her sugar and it was 118. She came in for evaluation due to concern for hypoglycemia. States that she has had a cough lately. Denies numbness or weakness, chest pain, shortness of breath, abdominal pain, vomiting, diarrhea, dysuria, leg swelling. Related Data Home Medications Medication Instructions Recorded Confirmed ergocalciferol (vitamin D2) 1,250 1,250 mcg PO 02/06/20 mcg (50,000 unit) capsule hydrocodone 5 mg-acetaminophen 325 1 tablet PO 02/06/20 mg tablet atorvastatin 40 mg tablet mg 06/08/22 06/08/22 gabapentin 300 mg capsule mg 06/08/22 triamterene 75 tablet 06/08/22 mg-hydrochlorothiazide 50 mg tablet Allergies Allergy/AdvReac Type Severity Reaction Status Date / Time No Known Allergies Allergy Verified 05/18/23 18:28 Review of Systems Review of Systems: All systems reviewed & are unremarkable except as noted in HPI and below PMFSH Past Medical History Medical History Cholelithiasis Diabetes type 2, controlled Hypertension Sleep apnea Surgical History Surgical History H/O section x3 (1997, 1999, 2015) History of tubal ligation (~05/01/16) Social History Social History Smoking status: Former smoker Alcohol intake: current Exam Narrative: GENERAL: Well-appearing, well-nourished, and in no acute distress. Pleasant and cooperative HEAD: Normocephalic, atraumatic. EYES: PERRLA and EOMI. ENT: Nares clear, no rhinorrhea or epistaxis. Mucous membranes moist. NECK: Supple. CHEST: Clear to auscultation. No respiratory distress. HEART: Regular rate and rhythm ABDOMEN: Soft, nontender, nondistended EXTREMITIES: Normal range of motion. No edema. SKIN: Warm, dry, no rash. NEURO: No focal deficits. Alert and oriented x3. PSYCH: Normal mood and affect. Course Vital Signs Vital signs: Vital Signs Temperature 97.4 F L 05/18/23 18:09 Pulse Rate 87 05/18/23 18:09 Respiratory Rate 18 05/18/23 18:09 Blood Pressure 134/84 05/18/23 18:09 Pulse Oximetry 98 05/18/23 18:09 Oxygen Delivery Room Air 05/18/23 18:09 Temperature 97.4 F L 05/18/23 18:09 Pulse Rate 86 05/18/23 21:47 Respiratory Rate 16 05/18/23 21:47 Blood Pressure 135/98 H 05/18/23 21:47 Pulse Oximetry 97 05/18/23 21:47 Oxygen Delivery Room Air 05/18/23 18:09 MDM - Recheck/Abnormal Lab/Rx MDM Narrative Medical decision making narrative: Patient is a 47-year-old female presenting with an episode of hypoglycemia. Vitals are stable. Sugar here is 116. Exam remarkable for the above. Blood work is unremarkable. Glucoses have remained greater than 100 since arriving. Patient observed for several hours [id number] is 117. Discussed the reassuring work-up with the patient and advised that the patient's stop fasting for the time being. Advised that she try to eat small regul
[2023-05-18 20:18] LABS: Appearance Urine Clear (Clear); Bilirubin Urine Negative (Negative); Blood Urine Negative (Negative); Color Urine Dark Yellow (Yellow); Glucose Urine UA Negative (Negative); Ketones Urine Negative (Negative); Leukocyte Esterase Ur Negative LEU/UL (Negative); Nitrate Urine Negative (Negative); Protein Urine Negative (Negative); Urobilinogen Urine 0.2 mg/dL (<2.0)
[2023-05-18 20:19] LABS: Add Urine Microscopic? NO
[2023-05-18 20:22] LABS: Basophils Percent Auto 0.3 % (0.2-1.2); Eosinophils Absolute Auto 0.1 K/mm3 (0-0.3); Hematocrit 36.7 % (37.0-47.0); Hemoglobin 11.2 g/dL (12.0-15.0); Immature Granulocyte Absolute 0.02 K/mm3 (0.00-0.031); Immature Granulocyte Percent A 0.2 % (0-0.5); Lymphocytes Absolute Auto 2.36 K/mm3 (0.9-3.2); Lymphocytes Percent Auto 24.7 % (18.3-44.2); Mean Corpuscular HGB Conc 30.5 g/dl (32-36); Mean Corpuscular Hemoglobin 24.9 pg (26-34); Mean Corpuscular Volume 81.7 fl (80-100); Monocytes Absolute Auto 0.4 K/mm3 (0.1-0.6); Monocytes Percent Auto 4.2 % (2.6-8.5); Neutrophils Absolute Auto 6.7 K/mm3 (1.3-6.7); Neutrophils Percent Auto 69.6 % (45.5-73.1); Platelet Count Result 257 k/mm3 (150-375); Red Blood Count 4.49 M/mm3 (4.2-5.4); Red Cell Distribution Width 15.9 % (11.5-14.5); White Blood Count 9.6 K/mm3 (4.5-10.0)
[2023-05-18 20:32] LABS: Alanine Aminotransferase 20 U/L (6-35); Albumin Level 4.3 g/dL (3.5-5.1); Alkaline Phosphatase 60 U/L (38-126); Anion Gap 14 mmol/L (8-16); Aspartate Amino Transferase 22 U/L (14-36); Bilirubin,Total 0.2 mg/dL (0.2-1.3); Blood Urea Nitrogen 21 mg/dL (7-17); Calcium 9.2 mg/dL (8.4-10.2); Carbon Dioxide 28 mmol/L (22-30); Chloride 94 mmol/L (98-107); Estimated CRCL calculation 83 ml/min; Estimated Glomerular Filt Rate > 60; Glucose 114 mg/dL (65-110); Lipase 72 U/L (23-300); Potassium 4.1 mmol/L (3.4-5.0); Sodium 136 mmol/L (137-145)
[2023-05-18 20:54] LABS: Influenza A QL RT-PCR Negative (Negative); Influenza B QL RT-PCR Negative (Negative); SARS-CoV-2 RNA PCR Negative (Negative)
[2023-05-18 21:07] LABS: Glucose Point of Care 117 mg/dl (65-105)
[2023-05-18 21:47] VITALS: BP 135/98; PULSE 86; RESP 16; O2SAT 97
== END 2023-05-18 21:47 | disposition home or self-care (01) ==
PROVIDERS: Emergency Provider Emergency Medicine; PCP Family Medicine
DX: E11.65 Type 2 diabetes mellitus with hyperglycemia (principal); I10 Essential (primary) hypertension; Z87.891 Personal history of nicotine dependence; Z20.822 Contact with and (suspected) exposure to COVID-19
CPT/HCPCS: 36415; 71046; 80053; 81003; 81025; 82948; 83690; 85025; 87636; 99283

== ENCOUNTER 2023-11-23 09:24 | Emergency (ER) | payer OTHER, SELFPAY ==
--- NOTE | 2023-11-23 09:24 | ED.UPPEXIN ---
HPI - Extremity Injury (Upper) General Chief Complaint: Extremity Injury, Upper Stated Complaint: RIGHT ARM PAIN Time Seen by Provider: 11/23/23 09:25 Source: patient and EMS Mode of arrival: ambulatory Limitations: no limitations History of Present Illness HPI narrative: Lex is a 48-year-old female patient presenting to the ER today with complaints of right-sided chest wall pain with numbness and tingling down her right arm. States she also had is having pain to the right trapezius muscle. Went to [facility] urgent care and they sent her here for further evaluation for chest pain. She denies any shortness of breath. Did report noticing some swelling in her ankles this morning so she wanted to be checked out. Her pain started last night. She denies any known injury. States that the pain is worse with movement of the right arm. Denies any associated headache, nausea, vomiting, shortness of breath, or visual changes. History of hypertension, type 2 diabetes, and high cholesterol. Denies any cardiac history. She is a former smoker. History of iron deficiency anemia Related Data Home Medications Medication Instructions Recorded Confirmed ergocalciferol (vitamin D2) 1,250 1,250 mcg PO 02/06/20 mcg (50,000 unit) capsule hydrocodone 5 mg-acetaminophen 325 1 tablet PO 02/06/20 mg tablet atorvastatin 40 mg tablet mg 06/08/22 06/08/22 gabapentin 300 mg capsule mg 06/08/22 triamterene 75 tablet 06/08/22 mg-hydrochlorothiazide 50 mg tablet Allergies Allergy/AdvReac Type Severity Reaction Status Date / Time No Known Allergies Allergy Verified 05/18/23 18:28 Review of Systems Review of Systems: Pertinent positives per HPI. Patient denies any fever, chills, rash, headache, visual changes, dizziness, cough, shortness of breath, chest pain, palpitations, nausea, vomiting, diarrhea, constipation, abdominal pain, or any urinary issues. [facility] Past Medical History Medical History Cholelithiasis Diabetes type 2, controlled Hypertension Sleep apnea Surgical History Surgical History H/O section x3 (1997, 1999, 2015) History of tubal ligation (~05/01/16) Social History Social History Smoking status: Former smoker Alcohol intake: current Comments At the time of my signature, I reviewed and agree with the nursing past medical, surgical, social, and family history. There is no relevant family history pertinent to the patient complaint. Exam Narrative: General: Well-developed, morbidly obese, in no apparent distress Head: Normocephalic, atraumatic. Cardio: Regular rate and rhythm, s1 and s2 normal, no murmur appreciated. Resp: Clear to auscultation bilaterally, no rhonchi, rales, wheezing or rubs. Musculoskeletal: No deformity, tender to palpation over the right chest wall, right trapezius musculature, with pain radiating down the right arm, grossly normal range of motion, muscle strength strong and equal, peripheral pulse strong, trace edema in lower extremities, no cyanosis, normal gait and station Course Course Emergency Course: Portions of this record may have been created with voice recognition software. Vital Signs Vital signs: Vital Signs Temperature 36.8 C 11/23/23 09:27 Pulse Rate 84 11/23/23 09:27 Respiratory Rate 18 11/23/23 09:27 Blood Pressure 131/96 H 11/23/23 09:27 Pulse Oximetry 100 11/23/23 09:27 Oxygen Delivery Room Air 11/23/23 09:27 Temperature 36.8 C 11/23/23 09:27 Pulse Rate 84 11/23/23 09:27 Respiratory Rate 18 11/23/23 09:27 Blood Pressure 131/96 H 11/23/23 09:27 Pulse Oximetry 100 11/23/23 09:27 Oxygen Delivery Room Air 11/23/23 09:27 Vital signs reviewed MDM - Extremity Injury (Upper) MDM Narrative Medical decision making narrative:
[2023-11-23 09:27] VITALS: BP 131/96; PULSE 84; RESP 18; TEMP 36.8; O2SAT 100
--- NOTE | 2023-11-23 09:31 | ECG_ITS ---
Measurements Intervals [place] Rate: 85 P: 58 VT: 183 QRS: 31 QRSD: 84 T: 42 QT: 385 QTc: 460 Interpretive Statements SINUS RHYTHM POSSIBLE LEFT ATRIAL ENLARGEMENT DELAYED PRECORDIAL R/S TRANSITION BORDERLINE ECG COMPARED TO ECG 03/06/2022 23:37:19 NO SIGNIFICANT CHANGES Electronically Signed On 11-23-2023 15:23:54 TITLE EXAMINER by Colin Mccullough D.O.
[2023-11-23 09:59] LABS: Basophils Percent Auto 0.4 % (0.2-1.2); Eosinophils Absolute Auto 0.1 K/mm3 (0-0.3); Eosinophils Percent Auto 0.7 % (0-4.4); Hematocrit 32.2 % (37.0-47.0); Hemoglobin 9.4 g/dL (12.0-15.0); Immature Granulocyte Absolute 0.02 K/mm3 (0.00-0.031); Immature Granulocyte Percent A 0.2 % (0-0.5); Lymphocytes Absolute Auto 2.36 K/mm3 (0.9-3.2); Lymphocytes Percent Auto 28.7 % (18.3-44.2); Mean Corpuscular HGB Conc 29.2 g/dl (32-36); Mean Corpuscular Hemoglobin 22.9 pg (26-34); Mean Corpuscular Volume 78.3 fl (80-100); Mean Platelet Volume 10.5 fl (7.4-10.4); Monocytes Absolute Auto 0.3 K/mm3 (0.1-0.6); Monocytes Percent Auto 3.2 % (2.6-8.5); Neutrophils Absolute Auto 5.5 K/mm3 (1.3-6.7); Neutrophils Percent Auto 66.8 % (45.5-73.1); Platelet Count Result 255 k/mm3 (150-375); Red Blood Count 4.11 M/mm3 (4.2-5.4); Red Cell Distribution Width 16.2 % (11.5-14.5); White Blood Count 8.2 K/mm3 (4.5-10.0)
[2023-11-23 10:09] LABS: Alanine Aminotransferase 14 U/L (6-35); Alkaline Phosphatase 60 U/L (38-126); Anion Gap 5 mmol/L (8-16); Aspartate Amino Transferase 19 U/L (14-36); Bilirubin,Total 0.4 mg/dL (0.2-1.3); Blood Urea Nitrogen 22 mg/dL (7-17); Calcium 9.1 mg/dL (8.4-10.2); Carbon Dioxide 25 mmol/L (22-30); Chloride 104 mmol/L (98-107); Estimated Glomerular Filt Rate > 60; Glucose 138 mg/dL (65-110); Potassium 3.8 mmol/L (3.4-5.0); Sodium 134 mmol/L (137-145)
[2023-11-23 10:10] LABS: Prothrombin Time 13.1 Seconds (11.1-14.7)
[2023-11-23 10:11] LABS: Partial Thromboplastin Time 25.3 SECONDS (22.3-36.8)
[2023-11-23 10:20] LABS: Hypochromasia 2+ (NORMAL); Platelet Estimate Adequate (Adequate); Schistocytes None Seen (NORMAL)
[2023-11-23 10:21] LABS: NT Pro B Type Natriuretic Pept 21 pg/mL (19.9-100); Troponin I < 0.012 ng/mL (0.000-0.034)
[2023-11-23 10:21] LABS: Anisocytosis 1+ (NORMAL); Ovalocytes 2+ (NORMAL); Polychromasia 1+ (NORMAL)
[2023-11-23 11:01] VITALS: BP 113/76; PULSE 86; RESP 20; O2SAT 98
== END 2023-11-23 11:02 | disposition home or self-care (01) ==
PROVIDERS: Emergency Provider Nurse Practitioner Family; PCP Family Medicine
DX: R07.89 Other chest pain (principal); D50.9 Iron deficiency anemia, unspecified; E11.9 Type 2 diabetes mellitus without complications; E78.00 Pure hypercholesterolemia, unspecified; Z87.891 Personal history of nicotine dependence; G47.30 Sleep apnea, unspecified; R94.31 Abnormal electrocardiogram [ECG] [EKG]
CPT/HCPCS: 36415; 80053; 83880; 84484; 85025; 85610; 85730; 93005; 99284

== ENCOUNTER 2023-12-18 10:05 | Emergency (ER) | payer OTHER, SELFPAY ==
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
[2023-12-18 10:15] VITALS: BP 120/75; PULSE 95; RESP 19; TEMP 37; O2SAT 98
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
== END 2023-12-18 13:31 | disposition home or self-care (01) ==
PROVIDERS: Emergency Provider Emergency Medicine; PCP Family Medicine
DX: S49.92XA Unspecified injury of left shoulder and upper arm, initial encounter (principal); E11.9 Type 2 diabetes mellitus without complications; I10 Essential (primary) hypertension; G47.30 Sleep apnea, unspecified; Z87.891 Personal history of nicotine dependence; M19.012 Primary osteoarthritis, left shoulder; V49.40XA Driver injured in collision with unspecified motor vehicles in traffic accident, initial encounter
CPT/HCPCS: 73030; 99283; A4565

== ENCOUNTER 2023-12-30 14:34 | Emergency (ER) | payer OTHER, SELFPAY ==
[2023-12-30] VITALS (7 sets, daily range): BP systolic 130–139; BP diastolic 71–87; PULSE 93–100; RESP 12–17; TEMP 36.3; O2SAT 94–99
--- NOTE | 2023-12-30 14:46 | ECG_ITS ---
Measurements Intervals [place] Rate: 93 P: 67 [place]: 191 QRS: 33 QRSD: 90 T: 38 QT: 378 Avg RR: 642 QTc: 429 QTcB: 471 QTcF: 438 Interpretive Statements SINUS RHYTHM WITH FREQUENT SUPRAVENTRICULAR PREMATURE COMPLEXES LOW QRS VOLTAGE IN PRECORDIAL LEADS [QRS DEFLECTION < 1.0 mV IN CHEST LEADS] ABNORMAL RHYTHM ECG SEE SCANNED COPY FOR SIGNATURE MTDD
[2023-12-30] MEDS: ALPRAZolam (*CRX) 0.5 MG TABLET PO (15:16)
--- NOTE | 2023-12-30 15:47 | ED.ARRPALP ---
HPI - Arrhythmia/Palpitations General Chief Complaint: Arrhythmia/Palpitations Stated Complaint: Elevated Heart Rate Time Seen by Provider: 12/30/23 14:38 History of Present Illness HPI narrative: Patient presenting with palpitations, she states the started yesterday, she had similar issues years ago where she was told she likely has anxiety, was placed on p.r.n. Xanax, but she has not had issues since. She does state that has been stressful recently because her granddaughter who is a has been living with her and she has not been sleeping well. No chest pain. No shortness of breath. No lower extremity edema. Related Data Home Medications Medication Instructions Recorded Confirmed ergocalciferol (vitamin D2) 1,250 1,250 mcg PO 02/06/20 mcg (50,000 unit) capsule hydrocodone 5 mg-acetaminophen 325 1 tablet PO 02/06/20 mg tablet atorvastatin 40 mg tablet mg 06/08/22 06/08/22 gabapentin 300 mg capsule mg 06/08/22 triamterene 75 tablet 06/08/22 mg-hydrochlorothiazide 50 mg tablet Allergies Allergy/AdvReac Type Severity Reaction Status Date / Time No Known Allergies Allergy Verified 12/30/23 14:42 Review of Systems Review of Systems: CONST: No fever. HEENT: No sore throat C/V: Palpitations RESP: No cough GI: No abdominal pain : No dysuria. M/S: No joint pain. SKIN: No rash. NEURO: [No headache or focal numbness or weakness] PSYCH: Slightly anxious [facility] Past Medical History Medical History Cholelithiasis Diabetes type 2, controlled Hypertension Sleep apnea Surgical History Surgical History H/O section x3 (1997, 1999, 2015) History of tubal ligation (~05/01/16) Social History Social History Smoking status: Former smoker Alcohol intake: current Exam Narrative: EXAMINATION OF ORGAN SYSTEMS/BODY AREAS: Constitutional: Vital signs per nursing GENERAL:[No acute distress, non-toxic appearing.] HEAD: Normal with no signs of head trauma. EYES: EOMI, conjunctiva normal ENT: Hearing grossly intact LUNGS: Nonlabored breathing. HEART: [Regular rate and rhythm] ABD: [Soft], [nontender to palpation] EXT: Normal range of motion SKIN: [No rashes or lesions.] NEURO: [Alert and oriented x 3. No gross focal sensory or strength deficits.] PSYCH: Normal affect Course Vital Signs Vital signs: Vital Signs Temperature 97.4 F L 12/30/23 14:39 Oxygen Delivery Room Air 12/30/23 14:39 Temperature 97.4 F L 12/30/23 14:39 Pulse Rate 99 12/30/23 15:17 Respiratory Rate 15 12/30/23 15:17 Blood Pressure 133/71 12/30/23 15:17 Pulse Oximetry 97 12/30/23 15:17 Oxygen Delivery Room Air 12/30/23 14:39 MDM - Arrhythmia/Palpitations MDM Narrative Medical decision making narrative: Patient with history of anxiety/panic attacks presenting here with symptoms consistent with anxiety. On exam patient is in no distress, clear to auscultation bilaterally, radial pulse. I will obtain EKG to rule out arrhythmia. EKG - 12-Lead: Performed at 1446. Interpreted by me. [Sinus rhythm] with occasional PVCs. Rate 93. [Normal] axis. IN-interval [normal]. QRS duration [normal]. QTc [normal]. [No ST segment elevation or depression]. [T-wave normal]. Impression: No EKG evidence of acute ischemia She is given small dose of xanax. On reevaluation patient is resting comfortably, vital signs stable. I do feel patient is stable for discharge home at this time with followup to their doctor, and return here if symptoms return or worsen. Agreeable to outpatient management. Discharge Plan Discharge Clinical Impression: Anxiety, Palpitations, Normal sinus rhythm Patient Disposition: Home, Self-Care Condition: Stable Instructions: Antibiotic Form, Heart Palpitations (ED) Ad
== END 2023-12-30 16:06 | disposition home or self-care (01) ==
PROVIDERS: Emergency Provider Emergency Medicine; PCP Family Medicine
DX: F41.9 Anxiety disorder, unspecified (principal); R00.2 Palpitations; E11.9 Type 2 diabetes mellitus without complications; I10 Essential (primary) hypertension; G47.30 Sleep apnea, unspecified
CPT/HCPCS: 93005; 99283; A9270

== ENCOUNTER 2025-04-21 21:58 | Emergency (ER) | payer OTHER, SELFPAY ==
[2025-04-21 21:59] VITALS: BP 119/84; PULSE 96; RESP 20; TEMP 36.9; O2SAT 96
--- OUTSIDE RECORDS SUMMARY | 2025-04-21 22:01 | XMS_ITS | Encounter Summary ---
Author Organization [facility] Healthcare Address [address] [place] [address] Care Team Providers Care Food And Beverage Server Name Role Phone Cristhian Cabrera MD Unavailable [phone] Nhung Fajardo PT Unavailable Unavailable Ángel Daniels MD Primary Care Provider [phone] Encounter Details Date Type Department Care Team (Late st Contact Info) Description 04/19/2025 Orders Only [facility] [address] [address] Ángel Daniels MD [address] [place] [address] Social History Tobacco Use Types Packs/Day Years Used Date Smoking Tobacco: Former Cigarettes Q uit: 2009 Smokeless Tobacco: Never AUDIT-C Answer Date Recorded Q1: How often do you have a drink containing alc ohol? Monthly or less 09/03/2023 Q2: How many drinks containi ng alcohol do you have on a typical day when you are drinking? 1 or 2 09/03/2023 Q3: How often do you have si x or more drinks on one occasion? 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 Gender Identity Female 05/20/2023 10:41 PM CDT Sexual Orientation Straight 05/20/2023 10 :41 PM CDT documented as of this encounter Plan of Treatment Not on file documented as of this encounter Visit Diagnoses Not on filedocumented in this encounter Care Teams Food And Beverage Server Relationship Specialty Start Date End Date Ángel Daniels MD [address] [facility] [place] [address] PCP - General Family Medicine 12/14/21 Cristhian Cabrera MD [address] [phone] [place] [address] Referring Physician General Surgery 04/08/18 Nhung Fajardo, PT Physical Therapist Physical Therapy 04/16/18 documented as of this encounter
--- OUTSIDE RECORDS SUMMARY | 2025-04-21 22:01 | XMS_ITS | Clinical Summary ---
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 Name Role Phone Cristhian Cabrera MD Unavailable [phone] Nhung Fajardo PT Unavailable Unavailable Ángel Daniels MD Primary Care Provider [phone] Allergies Active Allergy Reactions Criticality Noted Date Comments Other Other (See comments) Low 01/06/2023 Inflammation Medications multivitamin with minerals tablet Take by mouth daily Active vitamin B complex capsule Take 1 capsule by mouth daily Active fluticasone propionate (FLONASE) 50 mcg/actuation nasal sprayIndications:Ac [place]-apache nasopharyngitis Administer 2 sprays into each nostril daily 1 each 02/21/20 23 Active OneTouch Ultra2 Meter misc as directed 05/27/20 23 Active albuterol HFA (PROVENTIL HFA,VENTOLIN HFA,PROAIR HFA) 90 mcg/actuation inhaler Inhale 2 puffs every 6 (six) hours as needed for wheezing 8.5 g 3 09/03/20 23 Active loratadine (CLARITIN) 10 mg tabletIndications:C hronic idiopathic urticaria Take 1 tablet (10 mg total) by mouth 2 (two) times a day 60 tablet 11 06/07/20 24 025 Active valACYclovir (VALTREX) 1 gram tablet Take 2 tabs (2000 mg) 2 times a days for 1 day. 4 tablet 5 06/23/20 24 Active OneTouch Ultra Test strip USE TO TEST UP TO 3 TIMES A DAY 100 strip 1 08/10/20 24 Active triamterene-hydroCH LOROthiazide (MAXZIDE,DYAZIDE) 75-50 mg per tablet Take 1 tablet by mouth daily 90 tablet 3 08/18/20 24 Active OneTouch Delica Plus Lancet 33 gauge misc USE TO TEST TWICE DAILY 100 each 5 09/10/20 24 Active losartan (COZAAR) 50 mg tabletIndications:H ypertension associated with diabetes (HCC) Take 1 tablet (50 mg total) by mouth daily 30 tablet 11 11/10/19 25 026 Active nystatin powder Apply topically 4 (four) times a day 60 g 2 12/08/19 25 026 Active meloxicam (MOBIC) 15 mg tabletIndications:C arpal tunnel syndrome of right wrist Take 1 tablet (15 mg total) by mouth daily 30 tablet 11 01/15/20 25 026 Active methocarbamoL (ROBAXIN) 500 mg tablet Take 1 tablet (500 mg total) by mouth 2 (two) times a day as needed for muscle spasms 30 tablet 02/01/20 25 Active lidocaine viscous (XYLOCAINE) 2 % solution Apply 10 mL to the mouth or throat every 3 (three) hours 100 mL 2 03/10/20 25 Active TRUEplus Pen Needle 31 gauge x 1/4 needle Use as directed with weekly ozempic injection. 30 each 1 03/16/20 25 Active furosemide (LASIX) 20 mg tablet Take 1 tablet (20 mg total) by mouth daily as needed (swelling of the legs) 30 tablet 2 03/16/20 25 Active potassium chloride ER (KLOR-CON) 10 mEq CR tablet Take 1 tablet/capsul e (10 mEq total) by mouth daily Take with furosemide. 30 tablet 1 03/16/20 25 026 Active busPIRone (BUSPAR) 5 mg tabletIndications:G eneralized Anxiety Disorder Take 1 tablet (5 mg total) by mouth 3 (three) times a day 90 tablet 03/22/20 25 026 Active dexAMETHasone oral liquid 0.5 mg/5 mLIndications:Tongu e leukoplakia Take 10 mL (1 mg total) by mouth 3 (three) times a day 900 mL 04/04/20 25 025 Active HYDROcodone-acetami nophen (NORCO) 5-325 mg per tabletIndications:P ain Take 1 tablet by mouth every 6 (six) hours as needed for pain 120 tablet 04/08/20 25 025 Active tirzepatide (Mounjaro) 5 mg/0.5 mL pen injector injection Inject 0.5 mL (5 mg total) under the skin every 7 days 2 mL 2 04/08/20 25 Active HYDROcodone-acetami nophen (NORCO) 5-325 mg per tabletIndications:P ain Take 1 tablet by mouth every 6 (six) hours as needed for pain 120 tablet 03/09/20 25 025 Discontinu ed(Reorder ) semaglutide (OZEMPIC) 1 mg/dose (4 mg/3 mL) pen injector injectionIndication s:type 2 diabetes mellitus Inject 1 mg under the skin every 7 days 3 mL 3 03/22/20 25 025 Discontinu ed(Alterna te therapy) tirzepatide, weight loss, (Zepbound) 2.5 mg/0.5 mL pen injector Inject 0.5 mL (2.5 mg total) under the skin every 7 days 4 mL 03/28/20 25 025 Discontinu ed(Alterna te therapy) clotrimazole-betame thasone (LOTRISONE) creamIndications:Ch ronic eczematous otitis externa of left ear Apply topically 2 (two) times a day for 14 days 30 g 1 04/04/20 25 025 Active Problems Problem Noted Date Diagnosed Date Chronic eczematous otitis externa of left ear Assessment & Plan (04/04/2025 10:45 AM CDT): Lotrisone twice daily to outer portion of the ear canal for two weeks then as needed Avoid ear cleaning techniques Avoid water to ears Encounter for screening mamm ogram for malignant neoplasm of breast 03/28/2025 Assessment & Plan (03/28/2025 11:09 AM CDT): Breast cacner screenign. Change in bowel movement 03/28/2025 Assessment & Plan (03/28/2025 11:09 AM CDT): Refer to gi for evaluation and endoscopy and will monitor response. Tongue leukoplakia 03/28/2025 Assessment & Plan (04/04/2025 10:45 AM CDT): Decadron after meals and before bedtime to right side of tongue, hold in place for 2 minutes Dental evaluation to possibly smooth out right sided molars or premolar Follow up 8 weeks, if not gone, discuss excision and repair Risks and complications: Anesthesia, bleeding, infection, benign versus malignant pathology, recurrence of lesion, injury to arteries, nerves and veins, scarring and need for further treatment Assessment & Plan (03/28/2025 11:09 AM CDT): Strongly emphasize recurrent tongue ulceration and will follow response. No regional lAD. Need ent evaluatoni. Carpal tunnel syndrome of right wrist 01/14/2025 Assessment & Plan (01/14/2025 2:53 PM CDT): Patient reports intermittent wrist pain for the past few weeks, worsening in the last 1 week. No injury that she is aware of. She is right-hand dominant. Denies any repetitive movements or straining injuries. Has some numbness and tingling on fingers of right hand. Positive Tinel's on exam today. Recommended use of NSAIDs and wrist brace at night. Referral placed for further eval and treatment with Orthopedic surgery. BMI 50.0-59.9, adult 12/07/2024 Assessment & Plan (12/07/2024 2:02 PM CDT): ENcourage 150min/week aerobic exericse. Healthy food chcoies and will montior response. Morbid obesity with BMI of 50.0-59.9, adult 11/20 Assessment & Plan (03/28/2025 11:10 AM CDT): Encourage 150min/week aerobic exrecise. Healthy food chocies. Assessment & Plan (12/07/2024 2:02 PM CDT): As above. Controlled type 2 diabetes m teoitus without complication, without long-term current use of insulin 12/07/2024 Assessment & Plan (12/07/2024 2:03 PM CDT): Reviwed use of zpebound and iwll montior erponse. WIll montior for Side effects and rewviewed prior GI and episgastirc with other GLP-1 agonist sypmtomatology. Bilateral shoulder tendinopathy 12/07/2024 Assessment & Plan (12/07/2024 2:03 PM CDT): Referral to orthopedics and iwll follow response. Acute shoulder pain 05/11/2024 Body aches 05/11/2024 Contact dermatitis 05/11/2024 Fever, low grade 05/11/2024 Palpitations 05/11/2024 Hospital discharge follow-up 01/08/2024 Assessment & Plan (01/08/2024 8:53 AM CDT): ILorraine NP have personally reviewed pertinent inpatient and/or ED records, including discharge medications and Clindesk if applicable. This patient's discharge medication list has been reviewed and reconciled with her outpatient medication list and has also been reviewed with patient and/or caregiver. I have noted any changes. Polyarthralgia 01/08/2024 Assessment & Plan (01/08/2024 8:54 AM CDT): Mildly elevated CRP. Complains of multiple aches and pains and intermittent random edema. Will refer to Rheumatology for thorough evaluation. Appreciate their expertise. Also discussed the importance of weight loss. Iron deficiency 01/08/2024 Assessment & Plan (10/22/2024 3:36 PM PERINATAL TECH): Stable and continues on liquid Iron supplement. Will continue to monitor. Assessment & Plan (01/08/2024 8:54 AM CDT): Encouraged compliance with iron supplement. Will monitor response. Anxiety 01/08/2024 Assessment & Plan (01/08/2024 8:54 AM CDT): Discussed options. Will initiate p.r.n. hydroxyzine. Discussed scheduling and side effects. Can cause sedation. Will also give 1 tablet of alprazolam to take 1 hour prior to MRI. Do not drive. Type 2 diabetes mellitus with hyperlipidemia 09/2023 Assessment & Plan (03/28/2025 11:08 AM CDT): Reivewed impor to fecondary prevneiton with lipid managmeent and will follow response. No new myalgias/arthalgias. Assessment & Plan (10/22/2024 3:35 PM PERINATAL TECH): Discussed elevated LDL. Not taking any medication and declines any medication at this time. She is wanting to try supplements like red rice yeast and CoQ10. Will continue to monitor. Assessment & Plan (12/22/2023 12:35 PM CDT): Stable on simvasdtatin. No new arthralgias asdn will continue to ofllwo resopnse. Dermatitis 12/22/2023 Assessment & Plan (12/22/2023 12:36 PM CDT): Reviewed topcial agents. Reviewed appropriate mositurizing agents. Reviewed for allergic enviromnetnal triggers. Polymyalgia 12/22/2023 Mild intermittent asthma with exacerbation 09/03 Assessment & Plan (09/03/2023 2:07 PM PERINATAL TECH): Lungs are clear. O2 sat 97%. Will continue with albuterol inhaler. Will initiate azithromycin. If worsening or not resolving RTC. Red flags reviewed. Type 2 diabetes mellitus wit h hyperglycemia, without long-term current use of insulin 02/14/2022 Assessment & Plan (10/22/2024 3:34 PM PERINATAL TECH): Blood sugars remain elevated in the 200s at times. No longer taking Ozempic due to abdominal pain. Declined oral glipizide or other hyperglycemia medication. Will try to start supplements and continue to monitor. Assessment & Plan (01/08/2024 8:53 AM CDT): Will initiate Ozempic. Review contraindications and side effects. Will monitor response. Assessment & Plan (12/22/2023 12:34 PM CDT): Stable on diet and will leo huitron.se Assessment & Plan (02/14/2022 5:31 PM CDT): Lab Results Component Value Date HGBA1C 6.4 (H) 12/17/2021 Diet controlled. Checking BG daily. Aware to schedule eye exam, denies any neuropathy. LUQ abdominal pain 02/14/2022 Assessment & Plan (02/14/2022 5:29 PM CDT): Check labs today. No s/s of acute abdomen. Recommended miralax and bland/low fat diet in addition to pushing fluids. Follow up if no improvement in the next week. Reviewed red flags warranting immediate evaluation. Left leg pain 07/17/2021 Major depressive disorder, recurrent episode, mo derate 05/08/2018 Assessment & Plan (03/28/2025 11:09 AM CDT): Given combination of depressive and anxiety sypmtoms will add buspirone for acute stressors. No si/hi on direct questioning and will monitor response. Assessment & Plan (12/07/2024 2:02 PM CDT): Reviewed stressors and triggers. WIll continue to follow response and jonathan garcia. Type 2 diabetes mellitus wit h diabetic polyneuropathy, without long-term current use of insulin 05/04/2018 Assessment & Plan (03/28/2025 11:07 AM CDT): Reivewed glycemic control targets and will follow response. No new open wounds/sores. Class 3 severe obesity due t o excess calories with serious comorbidity and body mass index (BMI) of 50.0 to 59.9 in adult 05/04/2018 Assessment & Plan (10/22/2024 3:33 PM PERINATAL TECH): Encouraged heart healthy diet and lifestyle. Advised 150 min/week of aerobic exercise. Discussed NOURISH ovidio for account information clerk help. Assessment & Plan (02/14/2022 5:32 PM CDT): Discussed healthy diet and importance of regular physical activity. Hypertension associated with diabetes 05/04/2018 Assessment & Plan (03/28/2025 11:07 AM CDT): Reivwed target bp. Continues on losartan and reivewed edema contorl with furosemdie and potassiums with import of hydration and targeting of weight loss to assist. Assessment & Plan (10/22/2024 3:34 PM PERINATAL TECH): Blood pressure stable will decrease Losartan to 50 mg and keep Maxide Dyazide the same. Will continue to monitor. Assessment & Plan (12/22/2023 12:34 PM CDT): Stable on the current reimgen. WIll montior ersopnse. Reviewed glycmeic d3rvyxsk and will montior resopnse. Assessment & Plan (09/03/2023 2:07 PM PERINATAL TECH): Normotensive. No changes. Will continue to monitor. Obstructive apnea 05/04/2018 Assessment & Plan (12/22/2023 12:34 PM CDT): Reviewe dimprot of nightly therapy and impact of untreated LYNDSAY. Assessment & Plan (09/26/2023 11:44 AM PERINATAL TECH): Consider Oral appliance for sleep apnea Nightguard for teeth grinding Asthma 05/04/2018 Depression 05/04/2018 Bacterial infection due to Helicobacter pylori 0 05/04/2018 Vitamin D deficiency 01/22/2018 Benign essential HTN 11/27/2017 Chronic sciatica 10/10/2017 Edema 10/10/2017 Fatigue 10/10/2017 Low back pain 10/10/2017 Menorrhagia 10/10/2017 Acute bronchitis 03/07/2017 Resolved Problems Problem Noted Date Diagnosed Date Resolved Date Morbid obesity with BMI of 50.0-59.9, adult 12/22/2023 10/22/2024 Assessment & Plan (12/22/2023 12:35 PM CDT): Reviewed impact of incrased BMI on moultiple cormorbidities including LYNDSAY and DM and blood pressures and joint issues. BMI 50.0-59.9, adult 12/22/2023 025 Encounters Date Type Department Care Team Description 04/19/2025 6:15 PM CDT Therapy [facility] [place] [address] [place] [address] Kenyon Perez, PT 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 (Primary Dx); Chronic right shoulder pain 04/19/2025 Orders Only [facility] [address] [phone] Ángel Daniels MD 04/12/2025 Telephone [facility] [address] [phone] Ángel Daniels MD Call Back 04/08/2025 Orders Only [facility] [address] [phone] Ángel Daniels MD 04/04/2025 10:15 AM CDT Office Visit [facility] - [address] [place] [phone] Priscila Locke, DO Tongue leukoplakia (Primary Dx); Chronic eczematous otitis externa of left ear; Lesion of tongue 03/28/2025 Results Follow-Up [facility] [address] [phone] Ángel Daniels MD Comprehensive metabolic panel, Hemoglobin A1c, CBC with auto differential, Additional followed-up results: 4 03/22/2025 2:25 PM CDT Lab [facility] [address] [place] [place] [phone] Controlled type 2 diabetes mellitus without complication, without long-term current use of insulin (HCC); Bilateral shoulder tendinopathy 03/22/2025 1:45 PM CDT Office Visit [facility] [address] [phone] Ángel Daniels MD Lesion of tongue (Primary Dx); Change in bowel movement; Encounter for screening mammogram for malignant neoplasm of breast; Type 2 diabetes mellitus with diabetic polyneuropathy, without long-term current use of insulin (HCC); Hypertension associated with diabetes (HCC); Type 2 diabetes mellitus with hyperlipidemia (HCC); Major depressive disorder, recurrent episode, moderate ([facility]); Morbid obesity with BMI of 50.0-59.9, adult ([facility]); BMI 50.0-59.9, adult ([facility]) 03/18/2025 10:45 AM CDT Therapy [address] [place] [address] Christelle Adan, PT 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 (Primary Dx); Chronic right shoulder pain 03/18/2025 Plan of Care Documentation [address] [place] [address] 03/16/2025 Orders Only [facility] [address] [phone] Ángel Daniels MD 03/14/2025 Nurse Triage [facility] [address] [phone] Ángel Daniels MD Controlled type 2 diabetes mellitus with hyperglycemia, without long-term current use of insulin (HCC) (Primary Dx) 01/31/2025 7:30 PM CDT Telemedicine [facility] [address] [place] [phone] Edel Negrete, LITO Bilateral foot pain (Primary Dx) 01/31/2025 Nurse Triage [facility] [address] [phone] Ángel Daniels MD 01/25/2025 Orders Only [facility] at [address] [phone] Ángel Daniels MD 01/25/2025 Telephone [facility] at [address] [phone] Ángel Daniels MD 01/24/2025 Telephone [facility] [address] [phone] Ángel Daniels MD Authorization/Certifi cation 01/24/2025 Telephone [facility] [address] [phone] Ángel Daniels MD Forms Request from Last 3 Months Immunizations Immunization Administration Dates Next Due Influenza, Unspecified 10/22/2024(Deferr ed: Patient Refused),10/22/2024(Deferred: Patient Refused),05/23/2024(Deferred: Patient Refused),05/23/2024(Deferred: Patient Refused),07/07/2023(Deferred: Patient Refused),05/21/2023(Deferred: Patient Refused),12/12/2022(Deferred: Patient Refused),11/13/2022(Deferred: Patient Refused),10/16/2022(Deferred: Patient Refused),07/07/2022(Deferred: Patient Refused),05/23/2022(Deferred: Patient Refused),05/23/2022(Deferred: Patient Refused),05/23/2022(Deferred: Patient Refused),05/23/2022(Deferred: Patient Refused),09/22/2021(Deferred: Patient Refused),09/22/2020(Deferred: Patient Refused) Pneumococcal Polysaccharide PPV23 02/14/2022(Def erred: Patient Refused) Surgical History Surgery Date Site/Laterality Comments SECTION x3 TUBAL LIGATION Medical History Medical History Date Comments Type 2 diabetes mellitus (HCC) Hypertension Sleep apnea Asthma Depression Family History Medical History Relation Name Comments Diabetes Father Family history of diabetes mellitus - (Added by TW Conv) Hypertension Father Family history of hypertension - (Added by TW Conv) Obesity Father Family history of obesity - (Added by TW Conv) Depression Mother Family history of depression - (Added by TW Conv) Obesity Mother Family history of obesity - (Added by TW Conv) Arthritis Other 1 Gout Other 1 Obesity Other 1 Family history of obesity - Relation: Grandparent (Added by TW Conv) Diabetes Other 2 Family history of diabetes mellitus - Relation: Grandparent (Added by TW Conv) Hypertension Other 3 Family history of hypertension - Relation: Grandparent (Added by TW Conv) Heart disease Other 4 Family history of cardiac disorder - Relation: Grandparent (Added by TW Conv) Stroke Other 5 Family history of cerebrovascular accident (CVA) - Relation: Grandparent (Added by TW Conv) Depression Other 6 Family history of depression - (Added by TW Conv) Relation Name Status Comments Father Mother Other 1 Other 2 Other 3 Other 4 Other 5 Other 6 Social History Tobacco Use Types Packs/Day Years Used Date Smoking Tobacco: Former Cigarettes Q uit: 2008 Smokeless Tobacco: Never Tobacco Cessation:Counseling Given: Not Answered AUDIT-C Answer Date Recorded Q1: How often [...] on file Legal Sex Female 11:00 AM PERINATAL TECH Gender Identity Female 05/20/2023 10:41 PM CDT Sexual Orientation Straight 05/20/2023 10 :41 PM CDT Obstetrics History Para Term AB IAB SAB Ectopic Multiple Livin g Live Births 3 3 3 Date Outcome GA Total Labor Labor/2nd/3rd Weight Sex Type Anes PTL Cande A1 A5 Name Clin Term Term Term Last Filed Vital Signs Vital Sign Reading Time Taken Comments Blood Pressure 118/78 03/22/2025 1:42 PM CDT Pulse 87 03/22/2025 1:42 PM CDT Temperature 36.6 C (97.8 F) 03/22/2025 1:42 PM CDT Respiratory Rate 18 03/22/2025 1:42 PM CDT Oxygen Saturation 97% 03/22/2025 1:42 PM CDT room air Inhaled Oxygen Concentration - - Weight 137.4 kg (303 lb) 03/22/2025 1:42 PM CDT Height 162.6 cm (5' 4) 03/22/2025 1:42 PM CDT Body Mass Index 52.01 03/22/2025 1:42 PM CDT Plan of Treatment Health Maintenance Due Date Last Done Comments Cervical Cancer Screening 1975 Colon Cancer Screening-Colonoscopy 1975 Dilated Eye Exam 1975 DTaP/Tdap/Td Vaccine (1 - Tdap) 1986 Hepatitis B Screening 1993 Regular Well Visit/Exam 18-64 1993 Pneumococcal vaccine <65 (1 of 2 - PCV) 1994 Foot Exam 02/19/2023 02/19/2022 Breast Cancer Screening-Mammogram 03/13/2023 022 Albumin Creatinine Ratio, Urine 12/21/2024 , 10/16/2022 Influenza Vaccine (#1) 2025 Hemoglobin A1C 09/22/2025 03/22/2025, 05/23, 11/10/2023, Additional history exists Depression Screening 03/22/2026 03/22/2025, 01/14/2025, 12/07/2024, Additional history exists Lipid Panel 03/22/2026 03/22/2025, 05/23, 11/10/2023, Additional history exists eGFR 03/22/2026 03/22/2025, 10/0 10/2023, 06/08/2024, Additional history exists Hepatitis C Screening Completed 10/16/2022 Procedures Procedure Name Priority Date/Time Associated Diagnosis Comments EGFR Routine 03/22/2025 2:23 PM CDT Controlled type 2 diabetes mellitus without complication, without long-term current use of insulin (HCC) DIFFERENTIAL AUTO Routine 03/22/2025 2:2 3 PM CDT Controlled type 2 diabetes mellitus without complication, without long-term current use of insulin (HCC) ERYTHROCYTE SEDIMENTATION RATE Routine 03/22/2025 2:23 PM CDT Bilateral shoulder tendinopathy LIPID PANEL Routine 03/22/2025 2:23 PM CDT Controlled type 2 diabetes mellitus without complication, without long-term current use of insulin (HCC) CBC WITH AUTO DIFFERENTIAL Routine 03/22/2025 2:23 PM CDT Controlled type 2 diabetes mellitus without complication, without long-term current use of insulin (HCC) HEMOGLOBIN A1C Routine 03/22/2025 2:23 PM CDT Controlled type 2 diabetes mellitus without complication, without long-term current use of insulin (HCC) COMPREHENSIVE METABOLIC PANEL Routine 03/22/2025 2:23 PM CDT Controlled type 2 diabetes mellitus without complication, without long-term current use of insulin (HCC) ALBUMIN CREATININE RATIO, URINE Routine 12/22/2023 12:00 AM CDT Controlled type 2 diabetes mellitus with hyperglycemia, without long-term current use of insulin (HCC) HEPATITIS PANEL, ACUTE Routine 10/16/2022 3:30 PM PERINATAL TECH Screening examination for STD (sexually transmitted disease) SCREENING MAMMOGRAM BILATERAL W JEFFERY Schedule Routine, Read Routine (OP Routine) 03/13/2022 4:35 PM CDT Encounter for screening mammogram for breast cancer from Last 3 Months or Most Recently Relevant to Health Maintenance Results * eGFR (03/22/2025 2:23 PM CDT) eGFR 77 >=60 mL/min/1. 73 m2 Comment: Interpretive Data Reference Interval Normal >/= 90 mL/min/1.73m2 Mildly decreased* 60 - 89 mL/min/1.73m2 Mildly to moderately decreased 45 - 59 mL/min/1.73m2 Moderately to severely decreased 30 - 44 mL/min/1.73m2 Severely decreased 15 - 29 mL/min/1.73m2 Kidney Failure < 15 mL/min/1.73m2 *Relative to young adult level Estimated glomerular filtration rate is determined by the 2020 CKD-EPI equation recommended by the National Kid[employer] (A Unifying Approach to GFR Estimation: Recommendations of the NKF-ASK Task Force on Reassessing the Inclusion of Race in Diagnosing Kidney Disease, JASN 2020). The CKD-EPI equation should not be used for patients with unstable renal function and has not been validated in children and those over 70. Current interpretive data was last reviewed 2021. Testing performed by: [address], [address] Blood 03/22/2025 2:23 PM CDT 03/22/2025 7:51 PM CDT us Ángel Daniels MD LAB BLOOD ORDERABLES Siobhan valdovinos Result [facility] ([place]) [facility] [place] [address] * Differential, auto (03/22/2025 2:23 PM CDT) Neutrophil abs 5.85 1.50 - 6.50 K/cumm Comment:Testing performed by : [address], [address] Imm gran abs 0.02 0.00 - 0.10 K/cumm [facility] ([place]) Comment:Testing performed by : [address], [address] Lymphocyte abs 3.04 0.80 - 3.30 K/cumm [facility] ([place]) Comment:Testing performed by : [address] [address] Monocyte abs 0.48 0.20 - 0.80 K/cumm [facility] ([place]) Comment:Testing performed by : [address] [address] Eosinophil abs 0.17 0.00 - 0.50 K/cumm [facility] ([place]) Comment:Testing performed by : [address] [address] Basophil abs 0.06 0.00 - 0.10 K/cumm [facility] ([place]) Comment:Testing performed by : [facility], [address] [place] [address]., [id number] Neutrophil pct 60.8 % [facility] ([place]) Comment: Interpretive Data Percent cell count reference ranges are not reported, since discordance with absolute values may lead to misinterpretation of CBC data. Current Interpretive Data was last revised on 2017. Testing performed by: [facility], [address] [place] [address], [id number] Imm gran pct 0.2 % [facility] [facility] ([place]) Comment: Interpretive Data Percent cell count reference ranges are not reported, since discordance with absolute values may lead to misinterpretation of CBC data. Current Interpretive Data was last revised on 2017. Testing performed by: [facility], [address] [place] [address]., [id number] Lymphocyte pct 31.6 % [facility] ([place]) Comment: Interpretive Data Percent cell count reference ranges are not reported, since discordance with absolute values may lead to misinterpretation of CBC data. Current Interpretive Data was last revised on 2017. Testing performed by: [address] [address] Monocyte pct 5.0 % [facility] ([place]) Comment: Interpretive Data Percent cell count reference ranges are not reported, since discordance with absolute values may lead to misinterpretation of CBC data. Current Interpretive Data was last revised on 2017. Testing performed by: [facility] [place] [facility], [address] [place] [address]., [address] Eosinophil pct 1.8 % [facility] ([place]) Comment: Interpretive Data Percent cell count reference ranges are not reported, since discordance with absolute values may lead to misinterpretation of CBC data. Current Interpretive Data was last revised on 2017. Testing performed by: [address] [address] Basophil pct 0.6 % [facility] ([place]) Comment: Interpretive Data Percent cell count reference ranges are not reported, since discordance with absolute values may lead to misinterpretation of CBC data. Current Interpretive Data was last revised on 2017. Testing performed by: [address], [address] Blood 03/22/2025 2:23 PM CDT 03/22/2025 7:41 PM CDT us Ángel Daniels MD LAB BLOOD ORDERABLES Siobhan l Result [facility] ([place]) 1 [facility] [place] [address] * (ABNORMAL) CBC with auto differential (03/22/2025 2:23 PM CDT) WBC 9.62 3.80 - 9.90 K/cumm Comment:Testing performed by : [address], [address] Hgb 11.3(L) 11.9 - 15.5 g/dL [facility] ([place]) Comment:Testing performed by : [address], [address] Hct 36.8 35.6 - 45.5 % [facility] ([place]) Comment:Testing performed by : [address], [address] Plt 229 150 - 400 K/cumm [facility] ([place]) Comment:Testing performed by : [address], [address] MPV 12.0 9.1 - 12.3 fL [facility] ([place]) Comment:Testing performed by : [address], [address] RBC 4.37 3.90 - 5.20 M/cumm [facility] ([place]) Comment:Testing performed by : [address], [address] MCV 84.2 81.3 - 96.4 fL [facility] ([place]) Comment:Testing performed by : [address], [address] MCH 25.9(L) 27.1 - 33.3 pg [facility] ([place]) Comment:Testing performed by : [address], [place]., [address] MCHC 30.7(L) 32.3 - 35.7 g/dL RENAN [facility]ER[facility] ([place]) Comment:Testing performed by : [facility] [place] [facility], [address] [place] [address], [address] RDW CV 14.6 11.1 - 14.9 % [facility] ([place]) Comment:Testing performed by : [facility] [place] [facility], [address] [place] [address], [address] RDW SD 44.8 35.7 - 48.1 fL [facility]NAN [facility] ([place]) Comment:Testing performed by : [facility] [place] [facility], [address] [place] [address], [address] NRBC abs 0.00 0.00 - 0.01 K/cumm RENAN [facility] ([place]) Comment:Testing performed by : [facility] [place] [facility], [address] [place] [address], [address] Blood 03/22/2025 2:23 PM CDT 03/22/2025 7:41 PM CDT us Ángel Daniels MD LAB BLOOD ORDERABLES Siobhan l Result RENAN VALERIO ([place]) 1 [facility] [place] [address] * (ABNORMAL) Erythrocyte sedimentation rate (03/22/2025 2:23 PM CDT) Erythrocyte sedimentation rate 33(H) 1 - 20 mm/hr Comment:Testing performed by : [facility] [place] [facility], [address] [place] [address], [id number] Blood 03/22/2025 2:23 PM CDT 03/22/2025 7:41 PM CDT Ángel Daniels MD LAB BLOOD ORDERABLES Siobhan l Result KENRICKABBEY IMAN ([place]) 1 [facility] [place] [address] * (ABNORMAL) Hemoglobin A1c (03/22/2025 2:23 PM CDT) Hgb A1C 8.4(H) 4.0 - 5.6 % Comment:Testing performed by : [facility] [place] [facility], [address] [place] [address]., [address] Estimated Average Glucose 194 mg/dL RENAN VALERIO ([place]) Comment: The ADA recommends reporting an estimated Average Glucose (eAG) with all Hemoglobin A1c results using the equation derived from a study of 507 normal and diabetic adults. Minority populations were underrepresented and children were not included. (Diabetes Care 31:8630-9261, 2008). The eAG is not equivalent to a fasting glucose. Testing performed by: [facility] [place] [facility], [address] [place] [address]., [address] Blood 03/22/2025 2:23 PM CDT 03/22/2025 7:41 PM CDT Ángel Daniels MD LAB BLOOD ORDERABLES Siobhan valdovinos Result RENAN VALERIO ([place]) 1 [facility] [place] [address] * (ABNORMAL) Lipid panel (03/22/2025 2:23 PM CDT) Pathologist [facility] Cholesterol 203(H) 30 - 199 mg/dL Comment: Interpretive Data Ages < or = 19 years Acceptable: <170 mg/dL Borderline high: 170-199 mg/dL High: >or= 200 mg/dL Ages > or = 20 years Desirable: <200 mg/dL Borderline high: 200-239 mg/dL High: >or= 240 mg/dL Literature References: 1. Expert Panel on Integrated Guidelines for Cardiovascular Health and Risk Reduction in Children and Adolescents. Pediatrics 2011;128:S213 2. NCEP Expert Panel. Circulation 2004;110:227 Current Interpretive Data was last revised on 2018. Testing performed by: [facility] [place] [facility], [address] [place] [address]., [address] Triglycerides 231(H) <=149 mg/dL RENAN VALERIO ([place]) Comment: Interpretive Data Ages < or = 9 years Acceptable: <75 mg/dL Borderline high: 75-99 mg/dL High: >or= 100 mg/dL Ages 10 to 20 years Acceptable: <90 mg/dL Borderline high: 90-129 mg/dL High: >or= 130 mg/dL Ages > or = 20 years Desirable: <150 mg/dL Borderline high: 150-199 mg/dL High: 200-499 mg/dL Very high: >or= 499 mg/dL Literature References: 1. Expert Panel on Integrated Guidelines for Cardiovascular Health and Risk Reduction in Children and Adolescents. Pediatrics 2011;128:S213 2. NCEP Expert Panel. Circulation 2004;110:227 Current Interpretive Data was last revised on 2018. Testing performed by: [facility] [place] [facility], [address] [place] [address]., [address] HDL 44 >=40 mg/dL RENAN [facility]IO ([place]) Comment: Interpretive Data Ages < or = 19 years Acceptable: >45 mg/dL Borderline low: 40-45 mg/dL Low: <40 mg/dL Ages > or = 20 years Desirable: >or= 60 mg/dL Low: <40 mg/dL Literature References: 1. Expert Panel on Integrated Guidelines for Cardiovascular Health and Risk Reduction in Children and Adolescents. Pediatrics 2011;128:S213 2. NCEP Expert Panel. Circulation 2004;110:227 Current Interpretive Data was last revised on 2018. Testing performed by: [facility] [place] [facility], [address] [place] [address]., [address] LDL, calculated 119 <=129 mg/dL RENAN VALERIO ([place]) Comment: Interpretive Data Ages < or = 19 years Acceptable: <110 mg/dL Borderline high: 110-129 mg/dL High: >or= 130 mg/dL Ages > or = 20 years Optimal: <100 mg/dL Near optimal: 100-129 mg/dL Borderline high: 130-159 mg/dL High: >160 mg/dL Calculated using the Ankit LDL-C estimating equation. This equation was implemented on 2024. Prior to this date LDL-C was estimated using the Friedewald equation. Literature References: 1. Expert Panel on Integrated Guidelines for Cardiovascular Health and Risk Reduction in Children and Adolescents. Pediatrics 2011;128:S213 2. NCEP Expert Panel. Circulation 2004;110:227 3. Ankit Connell et al. DANA Cardiol. 2020 January 20;5(5):540-548. doi: 10.1001/jamacardio.2020.0013 Current Interpretive Data was last revised on 2024. Testing performed by: [address] [address] Non-HDL Cholesterol 159 mg/dL RENAN VALERIO ([place]) Comment: Interpretive Data Ages < or = 19 years Acceptable: <120 mg/dL Borderline high: 120-144 mg/dL High: >145 mg/dL Ages > or = 20 years When triglycerides are >200 mg/dL, Non-HDL cholesterol is a secondary target of therapy with treatment goals that are 30 mg/dL greater than the LDL cholesterol target. Literature References: 1. Expert Panel on Integrated Guidelines for Cardiovascular Health and Risk Reduction in Children and Adolescents. Pediatrics 2011;128:S213 2. NCEP Expert Panel. Circulation 2004;110:227 Current Interpretive Data was last revised on 2018. Testing performed by: [address] [address] Chol/HDL ratio 5 ARTEMIO VALERIO ([place]) Comment:Testing performed by : [address] [address] Blood 03/22/2025 2:23 PM CDT 03/22/2025 7:41 PM CDT Ángel Daniels MD LAB BLOOD ORDERABLES Siobhan l Result RENAN VALERIO ([place]) 1 [facility] Department [place] [address] * Comprehensive metabolic panel (03/22/2025 2:23 PM CDT) Sodium 137 135 - 145 mmol/L Comment:Testing performed by : [address] [address] Potassium, pl 3.8 3.3 - 4.9 mmol/L RENAN VALERIO ([place]) Comment:Testing performed by : [address] [address] Chloride 100 97 - 110 mmol/L RENAN VALERIO ([place]) Comment:Testing performed by : [address] [address] CO2 26 22 - 32 mmol/L [facility] ([place]) Comment:Testing performed by : [address], [address] Anion gap 11 2 - 15 mmol/L [facility] ([place]) Comment:Testing performed by : [address], [address] BUN 24 6 - 25 mg/dL [facility] ([place]) Comment:Testing performed by : [address], [address] Creatinine 0.91 0.60 - 1.10 mg/dL [facility] ([place]) Comment:Testing performed by : [address], [address] Glucose 137 70 - 199 mg/dL [facility] ([place]) Comment: Interpretive Data Fasting glucose >/= 126 mg/dl is diagnostic for diabetes. Fasting is defined as no caloric intake for at least 8 hours. Fasting glucose between 100 mg/dl to 125 mg/dl is diagnostic of prediabetes. In a patient with classic symptoms of hyperglycemia or hyperglycemic crisis, a random glucose >/= 200 mg/dl is diagnostic for diabetes. In the absence of unequivocal hyperglycemia, results should be confirmed by repeat testing. The classification and Diagnosis of Diabetes Diabetes Care 202; 46: S19-S40. Current interpretive data was last revised 2022. Testing performed by: [address], [address] Calcium 9.5 8.5 - 10.3 mg/dL [facility] ([place]) Comment:Testing performed by : [address], [address] Bilirubin, total 0.2 0.1 - 1.2 mg/dL [facility] ([place]) Comment:Testing performed by : [address], [address] Protein, pl 7.7 6.5 - 8.5 g/dL [facility] ([place]) Comment:Testing performed by : [address], [address] Albumin 3.8 3.5 - 5.0 g/dL [facility] ([place]) Comment:Testing performed by : [address] [place]., [address] Alk phos 57 40 - 130 Units/L RENAN [facility] ([place]) Comment:Testing performed by : [facility], [address] [place] [address]., [address] ALT 12 7 - 45 Units/L RENAN [facility] ([place]) Comment:Testing performed by : [facility] [place] [facility], [address] [place] [address], [address] AST 25 10 - 45 Units/L RENAN [facility] ([place]) Comment:Testing performed by : [facility] [place] [facility], [address] [place] [address]., [address] Blood 03/22/2025 2:23 PM CDT 03/22/2025 7:41 PM CDT Ángel Daniels MD LAB BLOOD ORDERABLES Siobhan l Result Performing Organization Address [facility] Co de Phone Number RENAN [facility] ([place]) 1 [facility] [place] [address] * Albumin Creatinine Ratio, Urine (12/22/2023 12:00 AM CDT) Albumin Ur <12.0 mg/L Comment: Interpretive Data No reference range established. Current interpretive data was last revised 2019. Creatinine Ur 25.7 mg/dL RENAN Comment: Interpretive Data No reference range established. Current interpretive data was last revised 2019. Albumin Creatinine Ratio, Ur See Comment 1 - 29 RENAN Comment:Unable to calculate Urine 12/22/2023 12/22/2023 8:4 6 PM CDT Ángel Daniels MD LAB URINE ORDERABLES Siobhan l Result Performing Organization Address City/[facility]/ZIP Co de Phone Number [facility] [address] [facility] Department of Laboratories [place], [place] [id number] * Hepatitis panel, acute (10/16/2022 3:30 PM PERINATAL TECH) Hep A IgM Nonreactive Nonreactive RENAN VALERIO ([place]) Comment: Interpretive Data: If Hep A IgM Ab is reported as Equivocal, a new sample should be drawn in two weeks for testing. Current interpretive data was last revised on 19. Testing performed by: [facility] [place] [facility], [address] [place] [address]., [address] Hep B core IgM Nonreactive Nonreactive C JAROD VALERIO ([place]) Comment: Interpretive Data If HepB Core IgM Ab is reported as Equivocal, a new sample should be drawn in two weeks for testing. Current interpretive data was last revised on 19. Testing performed by: [facility] [place] [facility], [address] [place] [address]., [address] Hep C Ab Nonreactive Nonreactive RENAN VALERIO ([place]) Comment: Interpretive Data Nonreactive: Antibodies to HCV not detected. Does NOT exclude the possibility of recent exposure to HCV. Equivocal: Equivocal for HCV antibodies. Supplemental molecular testing will be automatically performed to determine infection status in accordance with current CDC screening recommendations. Reactive: Positive for HCV antibodies. This may represent current or past HCV infection. Supplemental molecular testing will be automatically performed to determine current infection status in accordance with current CDC screening recommendations. Interpretive data was last revised on 2019. Testing performed by: [facility] [place] [facility], [address] [place] [address]., [address] HepBsAg Nonreactive Nonreactive RENAN VALERIO ([place]) Comment:Testing performed by : [address] [address] Blood 10/16/2022 3:30 PM PERINATAL TECH 10/16/2022 9:24 PM PERINATAL TECH Ángel Daniels MD LAB MICROBIOLOGY - GENERA L ORDERABLES Final Result RENAN VALERIO ([place]) 1 [facility] [place] [address] * SCREENING MAMMOGRAM BILATERAL W JEFFERY (03/13/2022 4:35 PM CDT) Anatomical Region Laterality Modality Breast Bilateral Mammography 03/13/2022 4:57 PM CDT Impressions 03/13/2022 4:57 PM CDT There is no mammographic evidence of malignancy. Routine screening mammography is recommended in 1 year. BI-RADS: 1 - Negative. The patient will be entered into a reminder system with a target due date of 1 year for her next mammogram. Electronically signed by: Zhang Negrete M.D. Narrative 03/13/2022 4:57 PM CDT EXAMINATION: SCREENING MAMMOGRAM BILATERAL W JEFFERY ORDERING HEALTHCARE PROVIDER: JL FLEMING HISTORY: Baseline screening mammography. COMPARISON: None available. TECHNIQUE: CC and MLO views of the bilateral breasts were obtained with digital technique using breast tomosynthesis with C view. Computer aided detection was utilized. FINDINGS: DENSITY: There are scattered fibroglandular elements in the bilateral breasts. BREASTS: There are no suspicious masses, suspicious calcifications, or other suspicious findings in either breast. 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
--- OUTSIDE RECORDS SUMMARY | 2025-04-21 22:01 | XMS_ITS | Clinical Summary ---
Author Organization [facility] Address [address] [place] [address] Care Team Providers Care Sterilizer Operator Name Role Phone Unavailable Primary Care Provider Unavailabl e Source Comments [facility],non-owned Affiliates and Associated Physician Practices is amultiple site organization consisting of ambulatory clinics and hospital sitesin [place], [place], [place] and [place]. This disclosure is being madepursuant to the Care Everywhere program and may not contain all information available regarding this patient. Last updated 18.[facility] Allergies Active Allergy Reactions Criticality Noted Date Comments Contrast-Iodinated Agents Fo r Ct/Other Other Low 01/06/2023 Inflammation Medications * Be aware that medications may not be up to date on this document. Alwaysverify current medications with the patient. albuterol HFA (PROVENTIL;VENT MODE;PROAIR) 108 (90 BASE) MCG/ACT inhaler Inhale 2 Puffs by mouth every 6 hours as needed 1 Inhaler 03/07/2017 Active metFORMIN CR osmotic 24hr (FORTAMET) 1000 MG (OSM) tablet Take 1 (one) tablet by mouth 2 times daily Active Multiple Vitamin (MULTI-DAY VITAMINS PO) Take by mouth once daily Active ferrous sulfate 325 (65 FE) MG tablet Take 1 (one) tablet by mouth once daily Active TRIAMTERENE-HCT Z PO Take by mouth once daily Active ketoconazole (NIZORAL) 2 % creamIndication s:Other seborrheic dermatitis Apply to affected areas on face twice daily. 30 days supply. 60 g 5 08/01/2021 Active ketoconazole (NIZORAL) 2 % shampooIndicati ons:Other seborrheic dermatitis Apply to wet hair, leave on for 3 minutes, then rinse; three times weekly. 30 days supply 120 mL 5 08/01/2021 Active ciclopirox (Loprox) 1 % shampooIndicati ons:Other seborrheic dermatitis Apply to wet hair and face, leave on for 3 minutes, then rinse; twice weekly. 30 days supply 60 mL 11 07/28/2024 Active clobetasol (Temovate) 0.05 % solutionIndicat ions:Other seborrheic dermatitis Apply to affected area on scalp BID. 30 day supply. 50 mL 4 07/28/2024 Active fluocinolone (Dermotic) 0.01 % otic oilIndications: Other seborrheic dermatitis Apply to affected area on scalp BID. 20 mL 5 07/28/2024 Active Active Problems Problem Noted Date Diagnosed Date Vitamin D deficiency 01/22/2018 Anxiety 10/10/2017 Chronic sciatica 10/10/2017 Diabetes mellitus 10/10/2017 Edema 10/10/2017 Essential hypertension 10/10/2017 Fatigue 10/10/2017 History of back pain 10/10/2017 Low back pain 10/10/2017 Menorrhagia 10/10/2017 Obesity 10/10/2017 Screening examination for pulmonary tuberculosis 10/10/2017 Acute bronchitis 03/07/2017 Social History Tobacco Use Types Packs/Day Years Used Date Smoking Tobacco: Never Smokeless Tobacco: Never Alcohol Use Standard Drinks/Week Comments No 0 (1 standard drink = 0.6 oz pur e alcohol) Comments Unknown Sex and Gender Information Value Date Recorded Sex Assigned at Not on file Legal Sex Female 1:22 AM CDT Gender Identity Not on file Sexual Orientation Not on file Last Filed Vital Signs Vital Sign Reading Time Taken Comments Blood Pressure 122/72 03/07/2017 7:39 AM CDT Pulse 100 03/07/2017 7:39 AM CDT Temperature 36.9 C (98.4 F) 03/07/2017 7:39 AM CDT Respiratory Rate 16 03/07/2017 7:39 AM CDT Oxygen Saturation 92% 03/07/2017 7:52 AM CDT Inhaled Oxygen Concentration 21% 03/06/2017 3 :17 PM CDT Weight 149.1 kg (328 lb 9.6 oz) 03/06/2017 1:28 AM CDT Height 162.6 cm (5' 4) 03/06/2017 1:28 AM CDT Body Mass Index 56.4 03/06/2017 1:28 AM CDT Plan of Treatment Health Maintenance Due Date Last Done Comments COLOGUARD (AGES 45-75) - COL ON CA SCREENING 1975 COLON MONITORING 1975 COLONOSCOPY - COLON CA SCREENING 1975 CT COLONOGRAPHY - COLON CA SCREENING 1975 Colorectal Cancer Screening 1975 FIT - COLON CA SCREENING 1975 FLEX SIG - COLON CA SCREENING 1975 HIV SCREENING 1990 DTAP/TDAP/TD VACCINES (1 - Tdap) 1994 HEPATITIS B VACCINE (1 of 3 - 19+ 3-dose series) 1994 PAP SMEAR 1996 DIABETES-STATIN 2015 DIABETES-SERUM CREATININE 03/07/20182016, 03/06/2017 DIABETES RETINOPATHY SCREENING 08/01/2021 DIABETES-FOOT EXAM WITH MONOFILAMENT 08/01/2021 MAMMOGRAM 03/13/2024 03/13/2022, 03/13/2022 COVID-19 VACCINE (1 - 2023-2 5 season) 2024 DEPRESSION SCREENING 09/22/2024 DIABETES - URINE PROTEIN SCREENING 09/22/2024 DIABETES-HGB A1C 12/06/2024 06/08/2024, 03/07/2017 INFLUENZA VACCINE (#1) 2025 ZOSTER VACCINE (1 of 2) 2025 HEPATITIS C SCREENING Completed 10/16/2022 HIB VACCINE Aged Out No longer eligi ble based on patient's age to complete this topic HPV VACCINE Aged Out No longer eligi ble based on patient's age to complete this topic MENINGOCOCCAL (Group B) VACCINE SHARED DECISION-MAKING Aged Out No longer eligible based on patient's age to complete this topic MENINGOCOCCAL GROUPS A/C/Y/W VACCINE Aged Out No longer eligible b ased on patient's age to complete this topic Procedures Procedure Name Priority Date/Time Associated Diagnosis Comments BASIC METABOLIC PANEL (CALCIUM TOTAL) AM Draw 03/07/2017 4:13 AM CDT HEMOGLOBIN A1C Routine 03/07/2017 4:13 AM CDT from Last 3 Months or Most Recently Relevant to Health Maintenance Results * (ABNORMAL) HEMOGLOBIN A1C (03/07/2017 4:13 AM CDT) Hemoglobin A1c 7.0(H) 4.2 - 6.3 % 03/07/2017 5:22 AM CDT [facility] Estimated Average Glucose 154 mg/dL 03/07/2017 5:22 AM CDT [facility] Whole Blood BLOOD SPECIMEN WITH EDTA / Unknown 03/07/2017 4:13 AM CDT 03/07/2017 4:45 AM CDT us Rhonda Mcallister VENEER GLUE JOINTER FEEDBACK-COLLECTOR OF PORT LAB - CHEMISTRY ORDERA BLES Final Result [facility] [address] [place] [address] * (ABNORMAL) BASIC METABOLIC PANEL (CALCIUM TOTAL) (03/07/2017 4:13 AM CDT) Pathologist [facility] Glucose 118(H) 74 - 106 mg/dL 03/07/2017 5:07 AM CDT [facility] Sodium 138 136 - 145 mmol/L 03/07/2017 5:07 AM CDT [facility] Potassium 3.5 3.5 - 5.1 mmol/L 03/07/2017 5:07 AM T [facility] Chloride 104 98 - 107 mmol/L 03/07/2017 5:07 AM CDT [facility] CO2 25 22 - 31 mmol/L 03/07/2017 5:07 AM CDT [facility] Calcium 8.7 8.5 - 10.1 mg/dL 03/07/2017 5:07 AM T [facility] Anion Gap 9 8 - 16 mmol/L 03/07/2017 5:07 AM CDT [facility] BUN 13 7 - 21 mg/dL 03/07/2017 5:07 AM T [facility] Creatinine 0.75 0.50 - 1.30 mg/dL 03/07/2017 5:07 AM T [facility] eGFR by MDRD >60 >60 mL/min/1.7 3m2 03/07/2017 5:07 AM T [facility] eGFR by MDRD >60 >60 mL/min/1.7 3m2 03/07/2017 5:07 AM CDT [facility] Blood BLOOD SPECIMEN / Unknown 03/07/2017 4:13 AM CDT 03/07/2017 4:45 AM CDT us Rhonda Vega Esvin VENEER GLUE JOINTER FEEDBACK-COLLECTOR OF PORT LAB - CHEMISTRY ORDERA BLES Final Result Performing Organization Address City/State/[facility] Co de Phone Number [facility] [address] [place] [address] from Last 3 Months or Most Recently Relevant to Health Maintenance Insurance [facility] Advance Directives * Full Code (Latest Code Status on File) Date Activated Date Inactivated Comments 03/06/2017 4:50 PM 03/07/2017 4:48 PM
--- OUTSIDE RECORDS SUMMARY | 2025-04-21 22:01 | XMS_ITS | Encounter Summary ---
Author Organization 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 Chronic right shoulder pain Dennis Rousseau, DO [address] [facility] [address] [place] [address] Phone: tel: fax: [facility] [place] [address] Phone: tel: fax: Referral ID Status Reason Start Date Expiration Date Visits Requested Visits Authorized [id number] Authorized Evaluate and Treat 03/18/2025 03/18/2026 18 11 Encounter Details Date Type Department Care Team (Late st Contact Info) Description 04/19/2025 6:15 PM CDT Therapy [facility] [place] [address] Kenyon Perez, PT 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 Chronic right shoulder pain M25.511 G89.29 Subjective : Lex reports having pain that won't go away. She feels like she needs to be stretched or something. Pain: 5-610 Objective : see tx provided Treatment Provided: PROM R and L shoulder IASTM using massage gun to B UT Elevated seated AAROM flex x10 Wall slides x20 Shoulder squeezes x15 Shoulder circles x15 Seated upper trap stretch 2x30 HEP: Access Code: [email or web address] URL: [email or web address] Date: 04/19/2025 Prepared by: Kenyon Young Exercises - Seated Cervical Sidebending Stretch - 2 x daily - 7 x weekly - 2 sets - 30 hold - Shoulder Flexion Wall Slide with Towel - 2 x daily - 7 x weekly - 2 sets - 10 reps - Supine Shoulder Flexion Extension AAROM with Dowel - 2 x daily - 7 x weekly - 2 sets - 10 reps - Seated Scapular Retraction - 2 x daily - 7 x weekly - 2 sets - 10 reps - Seated Shoulder Shrug Circles AROM Backward - 2 x daily - 7 x weekly - 2 sets - 10 reps Assessment: Lex seems to be doing okay since her initial evaluation. Incorporated more shoulderROM, which she seems to have a low tolerance for. Discussed with her the importance of maintaining functional motion to avoid adverse side effects which she verbalizes an understanding. She had notable tightness in her upper traps and spent time on STM for pain relief. Will continue to progress as tolerable. 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
--- OUTSIDE RECORDS SUMMARY | 2025-04-21 22:01 | XMS_ITS | Referral Summary ---
Author Organization [facility] Address [address] [place] [address] Care Team Providers Care Real Estate Professional Name Role Phone Cristhian Cabrera MD Unavailable [phone] Nhung Fajardo PT Unavailable Unavailable Ángel Daniels MD Primary Care Provider [phone] Encounters Date Type Department Care Team Description 04/19/2025 Orders Only [facility] [address] [phone] Ángel Daniels MD 04/19/2025 6:15 PM CDT Therapy [facility] [place] [address] [place] [address] Kenyon Perez, PT 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 (Primary Dx); Chronic right shoulder pain 04/12/2025 Telephone [facility] [address] [phone] Ángel Daniels MD Call Back 04/08/2025 Orders Only [facility] [address] [phone] Ángel Daniels MD 04/04/2025 10:15 AM CDT Office Visit [facility] - [address] [place] [phone] Priscila Locke DO Tongue leukoplakia (Primary Dx); Chronic eczematous otitis externa of left ear; Lesion of tongue 03/28/2025 Results Follow-Up [facility] [address] [phone] Ángel Daniels MD Comprehensive metabolic panel, Hemoglobin A1c, CBC with auto differential, Additional followed-up results: 4 03/22/2025 2:25 PM CDT Lab [facility] [address] [place] [phone] Controlled type 2 diabetes mellitus without complication, without long-term current use of insulin (HCC); Bilateral shoulder tendinopathy 03/22/2025 1:45 PM CDT Office Visit [facility] [address] [phone] Ángel Daniels MD Lesion of tongue (Primary Dx); Change in bowel movement; Encounter for screening mammogram for malignant neoplasm of breast; Type 2 diabetes mellitus with diabetic polyneuropathy, without long-term current use of insulin (HCC); Hypertension associated with diabetes (HCC); Type 2 diabetes mellitus with hyperlipidemia (HCC); Major depressive disorder, recurrent episode, moderate (HCC); Morbid obesity with BMI of 50.0-59.9, adult ([facility] BMI 50.0-59.9, adult (HCC) 03/18/2025 Plan of Care Documentation [facility] [place] [id number] 03/18/2025 10:45 AM CDT Therapy [facility] [place] [address] Christelle Adan, PT 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 (Primary Dx); Chronic right shoulder pain 03/16/2025 Orders Only [facility] [address] [phone] Ángel Daniels MD 03/14/2025 Nurse Triage [facility] [address] [phone] Ángel Daniels MD Controlled type 2 diabetes mellitus with hyperglycemia, without long-term current use of insulin (HCC) (Primary Dx) 01/31/2025 7:30 PM CDT Telemedicine [facility] [address] [place] [phone] Edel Negrete NP Bilateral foot pain (Primary Dx) 01/31/2025 Nurse Triage [facility] [address] [phone] Ángel Daniels MD 01/25/2025 Orders Only [facility] at [address] [phone] Ángel Daniels MD 01/25/2025 Telephone [facility] at [address] [phone] Ángel Daniels MD 01/24/2025 Telephone [facility] [address] [phone] Ángel Daniels MD Authorization/Certifi cation 01/24/2025 Telephone [facility] [address] [phone] Ángel Daniels MD Forms Request from Last 3 Months Allergies Active Allergy Reactions Criticality Noted Date Comments Other Other (See comments) Low 01/06/2023 Inflammation Medications multivitamin with minerals tablet Take by mouth daily Active vitamin B complex capsule Take 1 capsule by mouth daily Active fluticasone propionate (FLONASE) 50 mcg/actuation nasal sprayIndications:Ac baljinder nasopharyngitis Administer 2 sprays into each nostril [...] 3 (three) times a day 90 tablet 11 03/22/20 25 026 Active dexAMETHasone oral liquid 0.5 mg/5 mLIndications:Farhanu e leukoplakia Take 10 mL (1 mg total) by mouth 3 (three) times a day 900 mL 1 04/04/20 25 025 Active HYDROcodone-acetami nophen (NORCO) [...] a day for 14 days 30 g 04/04/20 25 025 Active Problems Problem Noted [...] CDT): As above. Controlled type 2 diabetes tommy an without complication, without long-term current use of [...] Assessment & Plan (01/08/2024 8:53 AM CDT): Lorraine Mina NP have personally reviewed pertinent inpatient and/or [...] 01/08/2024 Assessment & Plan (10/22/2024 3:36 PM PRISONER CLASSIFICATION INTERVIEWER): Stable and continues on liquid Iron supplement. [...] myalgias/arthalgias. Assessment & Plan (10/22/2024 3:35 PM PRISONER CLASSIFICATION INTERVIEWER): Discussed elevated LDL. Not taking any medication and declines any medication at this time. She is wanting to try supplements like red rice yeast and CoQ10. Will continue to monitor. Assessment & Plan (12/22/2023 12:35 PM CDT): Stable on simvasdtatin. No new arthralgias asdn will continue to lewis resdeborahnsestevan. Dermatitis 12/22/2023 Assessment & Plan (12/22/2023 12:36 PM CDT): Reviewed topcial agents. Reviewed appropriate mositurizing agents. Reviewed for allergic enviromnetnal triggers. Polymyalgia 12/22/2023 Mild intermittent asthma with exacerbation 09/03 Assessment & Plan (09/03/2023 2:07 PM PRISONER CLASSIFICATION INTERVIEWER): Lungs are clear. O2 sat 97%. Will continue with albuterol inhaler. Will initiate azithromycin. If worsening or not resolving RTC. Red flags reviewed. Type 2 diabetes mellitus wit h hyperglycemia, without long-term current use of insulin 02/14/2022 Assessment & Plan (10/22/2024 3:34 PM PRISONER CLASSIFICATION INTERVIEWER): Blood sugars remain elevated in the 200s [...] CDT): Stable on diet and will leo huitron. Assessment & Plan (02/14/2022 5:31 PM CDT): [...] 05/04/2018 Assessment & Plan (10/22/2024 3:33 PM PRISONER CLASSIFICATION INTERVIEWER): Encouraged heart healthy diet and lifestyle. Advised 150 min/week of aerobic exercise. Discussed NOURISH ovidio for residential care facility manager help. Assessment & Plan (02/14/2022 5:32 PM CDT): Discussed healthy diet and importance of regular physical activity. Hypertension associated with diabetes 05/04/2018 Assessment & Plan (03/28/2025 11:07 AM CDT): Reivwed target bp. Continues on losartan and reivewed edema contorl with furosemdie and potassiums with import of hydration and targeting of weight loss to assist. Assessment & Plan (10/22/2024 3:34 PM PRISONER CLASSIFICATION INTERVIEWER): Blood pressure stable will decrease Losartan to 50 mg and keep Maxide Dyazide the same. Will continue to monitor. Assessment & Plan (12/22/2023 12:34 PM CDT): Stable on the current reimgen. WIll montior ersopnse. Reviewed glycmeic h9komrti and will montior resopnse. Assessment & Plan (09/03/2023 2:07 PM PRISONER CLASSIFICATION INTERVIEWER): Normotensive. No changes. Will continue to monitor. Obstructive apnea 05/04/2018 Assessment & Plan (12/22/2023 12:34 PM CDT): Reviewe dimprot of nightly therapy and impact of untreated LYNDSAY. Assessment & Plan (09/26/2023 11:44 AM PRISONER CLASSIFICATION INTERVIEWER): Consider Oral appliance for sleep apnea Nightguard [...] joint issues. BMI 50.0-59.9, adult 12/22/2023 025 Immunizations Immunization Administration Dates Next Due Influenza, Unspecified 10/22/2024(Deferr ed: Patient Refused),10/22/2024(Deferred: Patient Refused),05/23/2024(Deferred: Patient Refused),05/23/2024(Deferred: Patient Refused),07/07/2023(Deferred: Patient Refused),05/21/2023(Deferred: Patient Refused),12/12/2022(Deferred: Patient Refused),11/13/2022(Deferred: Patient Refused),10/16/2022(Deferred: Patient Refused),07/07/2022(Deferred: Patient Refused),05/23/2022(Deferred: Patient Refused),05/23/2022(Deferred: Patient Refused),05/23/2022(Deferred: Patient Refused),05/23/2022(Deferred: Patient Refused),09/22/2021(Deferred: Patient Refused),09/22/2020(Deferred: Patient Refused) Pneumococcal Polysaccharide PPV23 02/14/2022(Def erred: Patient Refused) Social History Tobacco Use Types Packs/Day Years Used Date Smoking Tobacco: Former Cigarettes Q uit: 2009 Smokeless Tobacco: Never Tobacco Cessation:Counseling Given: Not [...] on file Legal Sex Female 11:00 AM PRISONER CLASSIFICATION INTERVIEWER Gender Identity Female 05/20/2023 10:41 PM CDT Sexual Orientation Straight 05/20/2023 10 :41 PM CDT Last Filed Vital Signs Vital Sign Reading [...] 03/22/2025 1:42 PM CDT Plan of Treatment Not on file Procedures Procedure Name Priority Date/Time Associated Diagnosis [...] HEPATITIS PANEL, ACUTE Routine 10/16/2022 3:30 PM PRISONER CLASSIFICATION INTERVIEWER Screening examination for STD (sexually transmitted disease) [...] was last reviewed 2021. Testing performed by: [address] [address] Blood 03/22/2025 2:23 PM CDT 03/22/2025 7:51 PM CDT Ángel Daniels MD LAB BLOOD ORDERABLES Siobhan valdovinos Result [facility] 1 [facility] [place] [address] * Differential, auto (03/22/2025 2:23 PM CDT) Neutrophil abs 5.85 1.50 - 6.50 K/cumm Comment:Testing performed by : [address], [address] Imm gran abs 0.02 0.00 - 0.10 K/cumm [facility] ([place]) Comment:Testing performed by : [address] [address] Lymphocyte abs 3.04 0.80 - 3.30 K/cumm [facility] ([place]) Comment:Testing performed by : [address] [address] Monocyte abs 0.48 0.20 - 0.80 K/cumm [facility] ([place]) Comment:Testing performed by : [address] [address] Eosinophil abs 0.17 0.00 - 0.50 K/cumm [facility] ([place]) Comment:Testing performed by : [address] [address] Basophil abs 0.06 0.00 - 0.10 K/cumm [facility] ([place]) Comment:Testing performed by : [address], [address] Neutrophil pct 60.8 % [facility] ([place]) Comment: Interpretive Data Percent cell count reference ranges are not reported, since discordance with absolute values may lead to misinterpretation of CBC data. Current Interpretive Data was last revised on 2017. Testing performed by: [facility], [address] [place] [address]., [address] Imm gran pct 0.2 % [facility]) Comment: Interpretive Data Percent cell count reference ranges are not reported, since discordance with absolute values may lead to misinterpretation of CBC data. Current Interpretive Data was last revised on 2017. Testing performed by: [facility], [address] [place] [address]., [address] Lymphocyte pct 31.6 % [facility] Comment: Interpretive Data Percent cell count reference ranges are not reported, since discordance with absolute values may lead to misinterpretation of CBC data. Current Interpretive Data was last revised on 2017. Testing performed by: [facility], [address] [place] [address]., [address] Monocyte pct 5.0 % [facility] ([place]) Comment: Interpretive Data Percent cell count reference ranges are not reported, since discordance with absolute values may lead to misinterpretation of CBC data. Current Interpretive Data was last revised on 2017. Testing performed by: [facility], [address] [place] [address]., [address] Eosinophil pct 1.8 % [facility] Comment: Interpretive Data Percent cell count reference ranges are not reported, since discordance with absolute values may lead to misinterpretation of CBC data. Current Interpretive Data was last revised on 2017. Testing performed by: [address] [address] Basophil pct 0.6 % [facility] ([place]) Comment: Interpretive Data Percent cell count reference ranges are not reported, since discordance with absolute values may lead to misinterpretation of CBC data. Current Interpretive Data was last revised on 2017. Testing performed by: [address] [address] Blood 03/22/2025 2:23 PM CDT 03/22/2025 7:41 PM CDT Ángel Daniels MD LAB BLOOD ORDERABLES Siobhan valdovinos Result [facility] ([place] 1 [facility] [place] [address] * (ABNORMAL) CBC with auto differential (03/22/2025 2:23 PM CDT) WBC 9.62 3.80 - 9.90 K/cumm Comment:Testing performed by : [facility], [address] [place] [address], [address] Hgb 11.3(L) 11.9 - 15.5 g/dL [facility] Comment:Testing performed by : [address], [address] Hct 36.8 35.6 - 45.5 % [facility] ([place]) Comment:Testing performed by : [address], [address] Plt 229 150 - 400 K/cumm [facility] ([place]) Comment:Testing performed by : [address], [address] MPV 12.0 9.1 - 12.3 fL [facility] ([place]) Comment:Testing performed by : [address], [address] RBC 4.37 3.90 - 5.20 M/cumm [facility] ([place]) Comment:Testing performed by : [address], [address] MCV 84.2 81.3 - 96.4 fL [facility] Comment:Testing performed by : [address], [address] MCH 25.9(L) 27.1 - 33.3 pg [facility]) Comment:Testing performed by : [address], [address] MCHC 30.7(L) 32.3 - 35.7 g/dL [facility] ([place]) Comment:Testing performed by : [address], [address] RDW CV 14.6 11.1 - 14.9 % [facility] ([place]) Comment:Testing performed by : [facility], [address] [place] [address], [address] RDW SD 44.8 35.7 - 48.1 fL [facility] ([place]) Comment:Testing performed by : [facility], [address] [place] [address]., [address] NRBC abs 0.00 0.00 - 0.01 K/cumm [facility] ([place]) Comment:Testing performed by : [facility], [address] [place] [address], [address] Blood 03/22/2025 2:23 PM CDT 03/22/2025 7:41 PM CDT Ángel Daniels MD LAB BLOOD ORDERABLES Siobhan l Result [facility] ([place]) 1 [facility] [place] [address] * (ABNORMAL) Erythrocyte sedimentation rate (03/22/2025 2:23 PM CDT) Pathologist [facility] Erythrocyte sedimentation rate 33(H) 1 - 20 mm/hr Comment:Testing performed by : [address], [address] Blood 03/22/2025 2:23 PM CDT 03/22/2025 7:41 PM CDT Ángel Daniels MD LAB BLOOD ORDERABLES Siobhan l Result [facility] ([place]) 1 [facility] [email or web address] [address] * (ABNORMAL) Hemoglobin A1c (03/22/2025 2:23 PM CDT) Hgb A1C 8.4(H) 4.0 - 5.6 % Comment:Testing performed by : [address], [address] Estimated Average Glucose 194 mg/dL [facility] ([place]) Comment: The ADA recommends reporting an estimated Average Glucose (eAG) with all Hemoglobin A1c results using the equation derived from a study of 507 normal and diabetic adults. Minority populations were underrepresented and children were not included. (Diabetes Care 31:0841-4104, 2008). The eAG is not equivalent to a fasting glucose. Testing performed by: [facility], [address] [place] [address]., [address] Blood 03/22/2025 2:23 PM CDT 03/22/2025 7:41 PM CDT Ángel Daniels MD LAB BLOOD ORDERABLES Siobhan valdovinos Result [facility] ([place] 1 [facility] Department [place] [address] * (ABNORMAL) Lipid panel (03/22/2025 2:23 PM CDT) Cholesterol 203(H) 30 - 199 mg/dL Comment: [...] last revised on 2018. Testing performed by: [facility], [address] [place] [address], [place]., [address] Triglycerides 231(H) <=149 mg/dL [facility] ([place]) [...] last revised on 2018. Testing performed by: [address] [address] HDL 44 >=40 mg/dL [facility] ([place]) [...] last revised on 2018. Testing performed by: [address] [address] LDL, calculated 119 <=129 mg/dL [facility] [...] last revised on 2024. Testing performed by: [address] [address] Non-HDL Cholesterol 159 mg/dL [facility] ([place]) [...] last revised on 2018. Testing performed by: [address] [address] Chol/HDL ratio 5 KENRICK[facility] Kimber [facility] ([place]) Comment:Testing performed by : [address], [address] Blood 03/22/2025 2:23 PM CDT 03/22/2025 7:41 PM CDT us Ángel Daniels MD LAB BLOOD ORDERABLES Siobhan valdovinos Result [facility] ([place] 1 [facility] [place] [address] * Comprehensive metabolic panel (03/22/2025 2:23 PM CDT) Sodium 137 135 - 145 mmol/L Comment:Testing performed by : [address] [address] Potassium, pl 3.8 3.3 - 4.9 mmol/L [facility]) Comment:Testing performed by : [address] [address] Chloride 100 97 - 110 mmol/L [facility] ([place]) Comment:Testing performed by : [address] [address] CO2 26 22 - 32 mmol/L [facility] ([place]) Comment:Testing performed by : [address], [address] Anion gap 11 2 - 15 mmol/L [facility] ([place]) Comment:Testing performed by : [address], [address] BUN 24 6 - 25 mg/dL [facility] ([place]) Comment:Testing performed by : [address], [address] Creatinine 0.91 0.60 - 1.10 mg/dL [facility]) Comment:Testing performed by : [address], [address] Glucose 137 70 - 199 mg/dL [facility] [...] was last revised 2022. Testing performed by: [address], [address] Calcium 9.5 8.5 - 10.3 mg/dL [facility] ([place]) Comment:Testing performed by : [address], [address] Bilirubin, total 0.2 0.1 - 1.2 mg/dL [facility] ([place]) Comment:Testing performed by : [address], [address] Protein, pl 7.7 6.5 - 8.5 g/dL [facility] ([place]) Comment:Testing performed by : [address], [address] Albumin 3.8 3.5 - 5.0 g/dL [facility] ([place]) Comment:Testing performed by : [address], [address] Alk phos 57 40 - 130 Units/L [facility] ([place]) Comment:Testing performed by : [address], [address] ALT 12 7 - 45 Units/L [facility] ([place]) Comment:Testing performed by : [address], [address] AST 25 10 - 45 Units/L [facility] ([place]) Comment:Testing performed by : [facility], [address] [place] [address]., [address] Blood 03/22/2025 2:23 PM CDT 03/22/2025 7:41 PM CDT Ángel Daniels MD LAB BLOOD ORDERABLES Siobhan l Result Performing Organization Address [facility] Co de Phone Number [facility] ([place]) 1 [facility] Department [place] [address] * Albumin Creatinine Ratio, Urine (12/22/2023 12:00 AM CDT) Albumin Ur <12.0 mg/L Comment: Interpretive Data No reference range established. Current interpretive data was last revised 2019. Creatinine Ur 25.7 mg/dL [facility] Comment: Interpretive Data No reference range established. Current interpretive data was last revised 2019. Albumin Creatinine Ratio, Ur See Comment 1 - 29 [facility] Comment:Unable to calculate Urine 12/22/2023 12/22/2023 8:4 6 PM CDT Ángel Daniels MD LAB URINE ORDERABLES Siobhan l Result Performing Organization Address [facility] Co de Phone Number [facility] [address] [facility] [place] [address] * Hepatitis panel, acute (10/16/2022 3:30 PM PRISONER CLASSIFICATION INTERVIEWER) Pathologist [facility] Hep A IgM Nonreactive Nonreactive [facility] ([place]) Comment: Interpretive Data: If Hep A IgM Ab is reported as Equivocal, a new sample should be drawn in two weeks for testing. Current interpretive data was last revised on 19. Testing performed by: [facility], [address] [place] [address]., [address] Hep B core IgM Nonreactive Nonreactive [facility] ([place]) Comment: Interpretive Data If HepB Core IgM Ab is reported as Equivocal, a new sample should be drawn in two weeks for testing. Current interpretive data was last revised on 19. Testing performed by: [facility], [address] [place] [address]., [address] Hep C Ab Nonreactive Nonreactive [facility] [...] last revised on 2019. Testing performed by: [facility], [address] [place] [address]., [address] HepBsAg Nonreactive Nonreactive [facility] ([place]) Comment:Testing performed by : [facility], [address] [place] [address]., [address] Blood 10/16/2022 3:30 PM PRISONER CLASSIFICATION INTERVIEWER 10/16/2022 9:24 PM PRISONER CLASSIFICATION INTERVIEWER us Ángel Daniels MD LAB MICROBIOLOGY - GENERA L ORDERABLES Final Result [facility] ([place]) 1 [facility] [place] [address] * SCREENING MAMMOGRAM BILATERAL W JEFFERY (03/13/2022 [...] suspicious findings in either breast. Jl Fleming SOFTWARE APPLICATIONS SPECIALIST IMG MAMMO PROCEDURES Final Result from Last 3 Months or Most Recently Relevant to Health Maintenance Insurance [facility] Care Teams Real Estate Professional Relationship Specialty Start Date End Date Ángel Daniels MD [address] [address] PCP - General Family Medicine 12/14/21 Cristhian Cabrera MD [address] [phone] [place] [address] Referring Physician General Surgery 04/08/18 Nhung Fajardo PT Physical Therapist Physical Therapy 04/16/18
[2025-04-21 22:53] VITALS: BP 108/57; PULSE 82; RESP 18; TEMP 36.9; O2SAT 98
--- NOTE | 2025-04-21 23:29 | ED.GENADULT ---
HPI - General Adult General Chief complaint: Dental/Oral Stated complaint: broken tooth, mouth pain Time Seen by Provider: 04/21/25 22:52 History of Present Illness HPI narrative: This is a pleasant 49-year-old female presenting ED with tooth pain. She was eating a burrito and she bit into a rock. She then chip the top of 1 of her bottom left premolars. She now has increased Heat/cold sensitivity. No other injuries. She has not seen a dentist because they said they were closed tonight. Related Data Home Medications ?Medication ?Instructions ?Recorded ?Confirmed ?Last Taken ?Type ergocalciferol (vitamin D2) 1,250 1,250 mcg PO 02/06/20 Unknown History mcg (50,000 unit) capsule hydrocodone 5 mg-acetaminophen 325 1 tablet PO 02/06/20 Unknown History mg tablet atorvastatin 40 mg tablet mg 06/08/22 06/08/22 Unknown History gabapentin 300 mg capsule mg 06/08/22 Unknown History triamterene 75 tablet 06/08/22 Unknown History mg-hydrochlorothiazide 50 mg tablet Allergies Allergy/AdvReac Type Severity Reaction Status Date / Time No Known Allergies Allergy Verified 04/21/25 22:09 [facility] Past Medical History Medical History Sleep apnea Cholelithiasis Hypertension Diabetes type 2, controlled Surgical History Surgical History History of tubal ligation (~05/01/16) H/O section x3 (1997, 1999, 2015) Social History Social History Smoking status: Former smoker Alcohol intake: current Exam Narrative: APPEARANCE: No apparent distress. Head: Oral exam revealed poor dentition, there is a small superficial chip to tooth 20. EYES: EOMI, NOSE: Atraumatic NECK: Trachea midline RESPIRATORY: No increased rate of breathing clear to auscultation CARDIOVASCULAR: RRR, no peripheral edema ABDOMINAL: Non-distended MUSCULOSKELETAl: No obvious deformities NEURO: Alert. Moving 4/4 extremities SKIN:: Warm, dry. Normal color PSYCHIATRIC: Normal affect Course Vital Signs Vital signs: Vital Signs Temperature 98.4 F 04/21/25 21:59 Pulse Rate 96 04/21/25 21:59 Respiratory Rate 20 04/21/25 21:59 Blood Pressure 119/84 04/21/25 21:59 Pulse Oximetry 96 04/21/25 21:59 Oxygen Delivery Room Air 04/21/25 21:59 Temperature 98.4 F 04/21/25 22:53 Pulse Rate 82 04/21/25 22:53 Respiratory Rate 18 04/21/25 22:53 Blood Pressure 108/57 L 04/21/25 22:53 Pulse Oximetry 98 04/21/25 22:53 Oxygen Delivery Room Air 04/21/25 21:59 Medical Decision Making MDM Narrative Medical decision making narrative: -Course: 49-year-old female presenting with a superficial chip of 1 of her bottom left premolars. Small area of exposed dentin. Nothing to be done in the emergency department today. given tylenol for pain. She is instructed to follow-up with a dentist. Vital Signs Vital Signs: Vital Signs Temperature 98.4 F 04/21/25 21:59 Pulse Rate 96 04/21/25 21:59 Respiratory Rate 20 04/21/25 21:59 Blood Pressure 119/84 04/21/25 21:59 Pulse Oximetry 96 04/21/25 21:59 Oxygen Delivery Room Air 04/21/25 21:59 Temperature 98.4 F 04/21/25 22:53 Pulse Rate 82 04/21/25 22:53 Respiratory Rate 18 04/21/25 22:53 Blood Pressure 108/57 L 04/21/25 22:53 Pulse Oximetry 98 04/21/25 22:53 Oxygen Delivery Room Air 04/21/25 21:59 Discharge Plan Discharge Clinical Impression: Chipped tooth Patient Disposition: Home Condition: Stable Instructions: Antibiotic Form, Acute Dental Trauma (ED) Additional Instructions: Please follow-up with a dentist. Patient Language: Swedish Prescriptions: No Action hydrocodone-acetaminophen 5-325 mg tablet 1 tablet PO ergocalciferol (vitamin D2) 1,250 mcg (50,000 unit) capsule 1,250 mcg PO hydrocodone-acetaminophen 5-325 mg tablet 1 tablet PO Q6H PRN (Reason: pain) Qty: 6 0RF naproxen 500 mg tablet 500 mg PO BID PRN (Reason: pain) 7 Days Qty: 14 0RF cyclobenzaprine 10 mg tablet 10 mg PO BID PRN (Reason: muscle spasm) Qty: 20 0RF lorazepam [Ativan] 0.5 mg tablet 0.5 mg PO DAILY PRN (Reason: anxiety) Qty: 2 0RF atorvastatin 40 mg tablet gabapentin 300 mg capsule triamterene-hydrochlorothiazid 75-50 mg tablet triamcinolone acetonide 0.1 % cream 1 applic topical TID Qty: 30 0RF Follow-up/Referrals: Harms,Ángel Ramírez M.D. [Primary Care Provider] - Stand Alone Forms: Work/School Release IP
[2025-04-21] MEDS: ACETAMINOPHEN 500 MG TABLET 1000 MG PO (23:33)
--- OUTSIDE RECORDS SUMMARY | 2025-04-21 23:34 | XMS_ITS | Encounter Summary ---
Author Organization [facility] Healthcare Address [address] [place] [address] Care Team Providers Care Can Piler Name Role Phone Cristhian Cabrera MD Unavailable [phone] Nhung Fajardo PT Unavailable Unavailable Ángel Daniels MD Primary Care Provider [phone] Reason for Visit * Reason Comments PT Treatment * Consultation (Routine) - Authorized Specialty Diagnoses / Procedures Referred By Oral contreras Referred To Contact Physical Therapy Diagnoses 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 Chronic right shoulder pain Dennis Rousseau, DO [address] [facility] [address] [place] [address] Phone: tel: fax: [facility] Physical Therapy [place] [address] Phone: tel: fax: Referral ID Status Reason Start Date Expiration Date Visits Requested Visits Authorized [id number] Authorized Evaluate and Treat 03/18/2025 03/18/2026 18 11 Encounter Details Date Type Department Care Team (Late st Contact Info) Description 04/19/2025 6:15 PM CDT Therapy 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
--- OUTSIDE RECORDS SUMMARY | 2025-04-21 23:34 | XMS_ITS | Referral Summary ---
Author Organization [facility] Address [address] [place] [address] Care Team Providers Care Mail Processing Machine Operator Name Role Phone Cristhian Cabrera MD Unavailable [phone] Nhung Fajardo PT Unavailable Unavailable Ángel Daniels MD Primary Care Provider [phone] Encounters Date Type Department Care Team Description 04/19/2025 Orders Only [facility] [address] [phone] Ángel Daniels MD 04/19/2025 6:15 PM CDT Therapy [facility] Physical Therapy - [address] [place] [address] Kenyon Perez, PT 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 (Primary Dx); Chronic right shoulder pain 04/12/2025 Telephone [facility] [address] [phone] Ángel Daniels MD Call Back 04/08/2025 Orders Only [facility] [address] [phone] Ángel Daniels MD 04/04/2025 10:15 AM CDT Office Visit [facility] - [address] [place] [phone] Priscila Locke DO Tongue leukoplakia (Primary Dx); Chronic eczematous otitis externa of left ear; Lesion of tongue 03/28/2025 Results Follow-Up [facility] [address] [phone] Ángel Daniels MD Comprehensive metabolic panel, Hemoglobin A1c, CBC with auto differential, Additional followed-up results: 4 03/22/2025 2:25 PM CDT Lab [facility] [address] [place] [phone] Controlled type 2 diabetes mellitus without complication, without long-term current use of insulin (HCC); Bilateral shoulder tendinopathy 03/22/2025 1:45 PM CDT Office Visit [facility] [address] [phone] Ángel Daniels MD Lesion of tongue (Primary Dx); Change in bowel movement; Encounter for screening mammogram for malignant neoplasm of breast; Type 2 diabetes mellitus with diabetic polyneuropathy, without long-term current use of insulin (HCC); Hypertension associated with diabetes (HCC); Type 2 diabetes mellitus with hyperlipidemia (HCC); Major depressive disorder, recurrent episode, moderate (HCC); Morbid obesity with BMI of 50.0-59.9, adult ([facility]); BMI 50.0-59.9, adult (HCC) 03/18/2025 Plan of Care Documentation [facility] Physical Therapy - [place] [address] 03/18/2025 10:45 AM CDT Therapy [facility] [place] [address] Christelle Adan, PT 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 (Primary Dx); Chronic right shoulder pain 03/16/2025 Orders Only [facility] [address] [phone] Ángel Daniels MD 03/14/2025 Nurse Triage [facility] [address] [phone] Ángel Daniels MD Controlled type 2 diabetes mellitus with hyperglycemia, without long-term current use of insulin (HCC) (Primary Dx) 01/31/2025 7:30 PM CDT Telemedicine [facility] [address] [place] [phone] Edel Negrete NP Bilateral foot pain (Primary Dx) 01/31/2025 Nurse Triage [facility] [address] [phone] Ángel Daniels MD 01/25/2025 Orders Only [facility] Primary Care at [address] [phone] Ángel Daniels MD 01/25/2025 Telephone [facility] Primary Care at [address] [phone] Ángel Daniels MD 01/24/2025 Telephone [facility] [address] [phone] Ángel Daniels MD Authorization/Certifi cation 01/24/2025 Telephone [facility] [address] [phone] Ángel Daniels MD Forms Request from Last [...] 01/08/2024 Assessment & Plan (10/22/2024 3:36 PM [facility]): Stable and continues on liquid Iron supplement. [...] myalgias/arthalgias. Assessment & Plan (10/22/2024 3:35 PM [facility]): Discussed elevated LDL. Not taking any medication [...] 09/03 Assessment & Plan (09/03/2023 2:07 PM [facility]): Lungs are clear. O2 sat 97%. Will continue with albuterol inhaler. Will initiate azithromycin. If worsening or not resolving RTC. Red flags reviewed. Type 2 diabetes mellitus wit h hyperglycemia, without long-term current use of insulin 02/14/2022 Assessment & Plan (10/22/2024 3:34 PM [facility]): Blood sugars remain elevated in the 200s [...] 05/04/2018 Assessment & Plan (10/22/2024 3:33 PM [facility]): Encouraged heart healthy diet and lifestyle. Advised 150 min/week of aerobic exercise. Discussed NOURISH ovidio for line supply help. Assessment & Plan (02/14/2022 5:32 PM CDT): Discussed healthy diet and importance of regular physical activity. Hypertension associated with diabetes 05/04/2018 Assessment & Plan (03/28/2025 11:07 AM CDT): Reivwed target bp. Continues on losartan and reivewed edema contorl with furosemdie and potassiums with import of hydration and targeting of weight loss to assist. Assessment & Plan (10/22/2024 3:34 PM [facility]): Blood pressure stable will decrease Losartan to 50 mg and keep Maxide Dyazide the same. Will continue to monitor. Assessment & Plan (12/22/2023 12:34 PM CDT): Stable on the current reimgen. WIll montior ersopnse. Reviewed glycmeic q4fclvio and will montior resopnse. Assessment & Plan (09/03/2023 2:07 PM [facility]): Normotensive. No changes. Will continue to monitor. Obstructive apnea 05/04/2018 Assessment & Plan (12/22/2023 12:34 PM CDT): Reviewe dimprot of nightly therapy and impact of untreated LYNDSAY. 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 Testing performed by: [address] [address] Blood 03/22/2025 2:23 PM CDT 03/22/2025 7:51 PM CDT Ángel Daniels MD LAB BLOOD ORDERABLES Siobhan valdovinos Result [facility] ([place]) [facility] [place] [address] * Differential, auto (03/22/2025 2:23 PM CDT) Neutrophil abs 5.85 1.50 - 6.50 K/cumm Comment:Testing performed by : [address], [address] Imm gran abs 0.02 0.00 - 0.10 K/cumm [facility] ([place]) Comment:Testing performed by : [address] [address] Lymphocyte abs 3.04 0.80 - 3.30 K/cumm [facility] ([place]) Comment:Testing performed by : [address] [address] Monocyte abs 0.48 0.20 - 0.80 K/cumm [facility] ([place]) Comment:Testing performed by : [address] [address] Eosinophil abs 0.17 0.00 - 0.50 K/cumm [facility] ([place]) Comment:Testing performed by : [address] [address] Basophil abs 0.06 0.00 - 0.10 K/cumm [facility] ([place]) Comment:Testing performed by : [address], [address] Neutrophil pct 60.8 % [facility] ([place]) Comment: Interpretive Data Percent cell count reference ranges are not reported, since discordance with absolute values may lead to misinterpretation of CBC data. Current Interpretive Data was last revised on 2017. Testing performed by: [facility], [address] [place] [address]., [address] Imm gran pct 0.2 % [facility] ([place]) Comment: Interpretive Data Percent cell count reference ranges are not reported, since discordance with absolute values may lead to misinterpretation of CBC data. Current Interpretive Data was last revised on 2017. Testing performed by: [facility], [address] [place] [address]., [address] Lymphocyte pct 31.6 % [facility] ([place]) Comment: Interpretive Data Percent cell count reference ranges are not reported, since discordance with absolute values may lead to misinterpretation of CBC data. Current Interpretive Data was last revised on 2017. Testing performed by: [facility], [address] [place] [address]., [address] Monocyte pct 5.0 % [facility] ([place]) Comment: Interpretive Data Percent cell count reference ranges are not reported, since discordance with absolute values may lead to misinterpretation of CBC data. Current Interpretive Data was last revised on 2017. Testing performed by: [facility], [address] [place] [address]., [address] Eosinophil pct 1.8 % [facility] ([place]) Comment: Interpretive Data Percent cell count reference ranges are not reported, since discordance with absolute values may lead to misinterpretation of CBC data. Current Interpretive Data was last revised on 2017. Testing performed by: [address] [address] Basophil pct 0.6 % [facility] ([place]) Comment: Interpretive Data Percent cell count reference ranges are not reported, since discordance with absolute values may lead to misinterpretation of CBC data. Current Interpretive Data was last revised on 2017. Testing performed by: [address] [address] Blood 03/22/2025 2:23 PM CDT 03/22/2025 7:41 PM CDT Ángel Daniels MD LAB BLOOD ORDERABLES Siobhan valdovinos Result [facility] ([place]) [facility] [place] [address] * (ABNORMAL) CBC with auto differential (03/22/2025 2:23 PM CDT) WBC 9.62 3.80 - 9.90 K/cumm Comment:Testing performed by : [facility], [address] [place] [address], [address] Hgb 11.3(L) 11.9 - 15.5 g/dL [facility] ([place]) Comment:Testing performed by : [address], [address] Hct 36.8 35.6 - 45.5 % [facility] ([place]) Comment:Testing performed by : [address], [address] Plt 229 150 - 400 K/cumm [facility] ([place]) Comment:Testing performed by : [address], [address] MPV 12.0 9.1 - 12.3 fL [facility] ([place]) Comment:Testing performed by : [address], [address] RBC 4.37 3.90 - 5.20 M/cumm [facility] ([place]) Comment:Testing performed by : [address], [address] MCV 84.2 81.3 - 96.4 fL [facility] ([place]) Comment:Testing performed by : [address], [address] MCH 25.9(L) 27.1 - 33.3 pg [facility] ([place]) Comment:Testing performed by : [address], [address] MCHC 30.7(L) 32.3 - 35.7 g/dL [facility] ([place]) Comment:Testing performed by : [address], [address] RDW CV 14.6 11.1 - 14.9 % [facility] ([place]) Comment:Testing performed by : [facility], [address] [place] [address], [address] RDW SD 44.8 35.7 - 48.1 fL [facility] ([place]) Comment:Testing performed by : [facility], [address] [place] [address]., [address] NRBC abs 0.00 0.00 - 0.01 K/cumm [facility] ([place]) Comment:Testing performed by : [facility], [address] [place] [address], [address] Blood 03/22/2025 2:23 PM CDT 03/22/2025 7:41 PM CDT Ángel Daniels MD LAB BLOOD ORDERABLES Siobhan l Result [facility] ([place]) 1 [facility] [place] [address] * (ABNORMAL) Erythrocyte sedimentation rate (03/22/2025 2:23 PM CDT) Pathologist [facility] [place] Erythrocyte sedimentation rate 33(H) 1 - 20 mm/hr Comment:Testing performed by : [address], [address] Blood 03/22/2025 2:23 PM CDT 03/22/2025 7:41 PM CDT Ángel Daniels MD LAB BLOOD ORDERABLES Siobhan l Result [facility] ([place]) [facility] [place] [address] * (ABNORMAL) Hemoglobin A1c (03/22/2025 2:23 PM CDT) Hgb A1C 8.4(H) 4.0 - 5.6 % Comment:Testing performed by : [address], [address] Estimated Average Glucose 194 mg/dL [facility] ([place]) Comment: The ADA recommends reporting an estimated Average Glucose (eAG) with all Hemoglobin A1c results using the equation derived from a study of 507 normal and diabetic adults. Minority populations were underrepresented and children were not included. (Diabetes Care 31:9210-8120, 2008). The eAG is not equivalent to a fasting glucose. Testing performed by: [facility], [address] [place] [address]., [address] Blood 03/22/2025 2:23 PM CDT 03/22/2025 7:41 PM CDT Ángel Daniels MD LAB BLOOD ORDERABLES Siobhan valdovinos Result [facility] ([place]) 1 [facility] Department [place] [address] * (ABNORMAL) Lipid panel (03/22/2025 2:23 PM [...] last revised on 2018. Testing performed by: [facility], [address] [place] [address], [place]., [address] Triglycerides 231(H) <=149 mg/dL [facility] ([place]) [...] last revised on 2018. Testing performed by: [address] [address] HDL 44 >=40 mg/dL [facility] ([place]) [...] last revised on 2018. Testing performed by: [address] [address] LDL, calculated 119 <=129 mg/dL [facility] [...] last revised on 2024. Testing performed by: [address] [address] Non-HDL Cholesterol 159 mg/dL [facility] ([place]) [...] last revised on 2018. Testing performed by: [address] [address] Chol/HDL ratio 5 [facility] Kimber [facility] ([place]) Comment:Testing performed by : [address], [address] Blood 03/22/2025 2:23 PM CDT 03/22/2025 7:41 PM CDT us Ángel Daniels MD LAB BLOOD ORDERABLES Siobhan valdovinos Result [facility] ([place]) 1 [facility] Department [place] [address] * Comprehensive metabolic panel (03/22/2025 2:23 PM CDT) Sodium 137 135 - 145 mmol/L Comment:Testing performed by : [address] [address] Potassium, pl 3.8 3.3 - 4.9 mmol/L [facility] ([place]) Comment:Testing performed by : [address] [address] Chloride 100 97 - 110 mmol/L [facility] ([place]) Comment:Testing performed by : [address] [address] CO2 26 22 - 32 mmol/L [facility] ([place]) Comment:Testing performed by : [address], [address] Anion gap 11 2 - 15 mmol/L [facility] ([place]) Comment:Testing performed by : [address], [address] BUN 24 6 - 25 mg/dL [facility] ([place]) Comment:Testing performed by : [address], [address] Creatinine 0.91 0.60 - 1.10 mg/dL [facility] ([place]) Comment:Testing performed by : [address], [address] Glucose 137 70 - 199 mg/dL [facility] [...] was last revised 2022. Testing performed by: [address], [address] Calcium 9.5 8.5 - 10.3 mg/dL [facility] ([place]) Comment:Testing performed by : [address], [address] Bilirubin, total 0.2 0.1 - 1.2 mg/dL [facility] ([place]) Comment:Testing performed by : [address], [address] Protein, pl 7.7 6.5 - 8.5 g/dL [facility] ([place]) Comment:Testing performed by : [address], [address] Albumin 3.8 3.5 - 5.0 g/dL [facility] ([place]) Comment:Testing performed by : [address], [address] Alk phos 57 40 - 130 Units/L [facility] ([place]) Comment:Testing performed by : [address], [address] ALT 12 7 - 45 Units/L [facility] ([place]) Comment:Testing performed by : [address], [address] AST 25 10 - 45 Units/L [facility] ([place]) Comment:Testing performed by : [facility], [address] [place] [address]., [address] Blood 03/22/2025 2:23 PM CDT 03/22/2025 7:41 PM CDT Ángel Daniels MD LAB BLOOD ORDERABLES Siobhan l Result Performing Organization Address [facility] Co de Phone Number [facility] ([place]) 1 [facility] [place] [address] * Albumin Creatinine Ratio, Urine (12/22/2023 12:00 [...] ORDERABLES Siobhan l Result Performing Organization Address [facility] Co de Phone Number [facility] [address] [facility] [place] [address] * Hepatitis panel, acute (10/16/2022 3:30 PM [facility]) Pathologist [facility] [place] Hep A IgM Nonreactive Nonreactive [facility] ([place]) Comment: Interpretive Data: If Hep A IgM Ab is reported as Equivocal, a new sample should be drawn in two weeks for testing. Current interpretive data was last revised on 19. Testing performed by: [facility], [address] [place] [address]., [address] Hep B core IgM Nonreactive Nonreactive [facility] ([place]) Comment: Interpretive Data If HepB Core IgM Ab is reported as Equivocal, a new sample should be drawn in two weeks for testing. Current interpretive data was last revised on 19. Testing performed by: [facility], [address] [place] [address]., [address] Hep C Ab Nonreactive Nonreactive [facility] [...] last revised on 2019. Testing performed by: [facility], [address] [place] [address]., [address] HepBsAg Nonreactive Nonreactive [facility] ([place]) Comment:Testing performed by : [facility], [address] [place] [address]., [address] Blood 10/16/2022 3:30 PM [facility] 10/16/2022 9:24 PM [facility] us Ángel Daniels MD LAB MICROBIOLOGY - GENERA L ORDERABLES Final Result [facility] ([place]) 1 [facility] [place] [address] * SCREENING MAMMOGRAM BILATERAL W JEFFERY (03/13/2022 [...] suspicious findings in either breast. Jl Fleming MEASUREMENT SUPERVISOR IMG MAMMO PROCEDURES Final Result from Last 3 Months or Most Recently Relevant to Health Maintenance Insurance [facility] Care Teams Mail Processing Machine Operator Relationship Specialty Start Date End Date Ángel Daniels MD [address] [address] PCP - General Family Medicine 12/14/21 Cristhian Cabrera MD [address] [id number] [place] [address] Referring Physician General Surgery 04/08/18 Nhung Fajardo PT Physical Therapist Physical Therapy 04/16/18
--- OUTSIDE RECORDS SUMMARY | 2025-04-21 23:34 | XMS_ITS | Encounter Summary ---
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 Gender Identity Female 05/20/2023 10:41 PM CDT Sexual Orientation Straight 05/20/2023 10 :41 PM CDT documented as of this encounter Plan of Treatment Not on file documented as of this encounter Visit Diagnoses Not on filedocumented in this encounter Care Teams Pattern Vault Clerk Relationship Specialty Start Date End Date Ángel Daniels MD [address] [place] [address] PCP - General Family Medicine 12/14/21 Cristhian Cabrera MD [id number] [place] [address] Referring Physician General Surgery 04/08/18 Nhung Fajardo, PT Physical Therapist Physical Therapy 04/16/18 documented as of this encounter
--- OUTSIDE RECORDS SUMMARY | 2025-04-21 23:34 | XMS_ITS | Clinical Summary ---
Author Organization [facility] Address [address] [place] [phone] Care Team Providers Care Family Resource Management Specialist Name Role Phone Cristhian Cabrera MD Unavailable [phone] Nhung Fajardo PT Unavailable Unavailable Ángel Daniels MD Primary Care Provider [phone] Allergies Active Allergy Reactions Criticality Noted Date Comments Other Other (See comments) Low 01/06/2023 Inflammation Medications multivitamin with minerals tablet Take by mouth daily Active vitamin B complex capsule Take 1 capsule by mouth daily Active fluticasone propionate (FLONASE) 50 mcg/actuation nasal sprayIndications:Ac [place] nasopharyngitis Administer 2 sprays into each nostril [...] 01/08/2024 Assessment & Plan (10/22/2024 3:36 PM DEICER REPAIRER): Stable and continues on liquid Iron supplement. [...] myalgias/arthalgias. Assessment & Plan (10/22/2024 3:35 PM DEICER REPAIRER): Discussed elevated LDL. Not taking any medication [...] 09/03 Assessment & Plan (09/03/2023 2:07 PM DEICER REPAIRER): Lungs are clear. O2 sat 97%. Will continue with albuterol inhaler. Will initiate azithromycin. If worsening or not resolving RTC. Red flags reviewed. Type 2 diabetes mellitus wit h hyperglycemia, without long-term current use of insulin 02/14/2022 Assessment & Plan (10/22/2024 3:34 PM DEICER REPAIRER): Blood sugars remain elevated in the 200s [...] 05/04/2018 Assessment & Plan (10/22/2024 3:33 PM DEICER REPAIRER): Encouraged heart healthy diet and lifestyle. Advised 150 min/week of aerobic exercise. Discussed NOURISH ovidio for blocker polishing help. Assessment & Plan (02/14/2022 5:32 PM CDT): Discussed healthy diet and importance of regular physical activity. Hypertension associated with diabetes 05/04/2018 Assessment & Plan (03/28/2025 11:07 AM CDT): Reivwed target bp. Continues on losartan and reivewed edema contorl with furosemdie and potassiums with import of hydration and targeting of weight loss to assist. Assessment & Plan (10/22/2024 3:34 PM DEICER REPAIRER): Blood pressure stable will decrease Losartan to 50 mg and keep Maxide Dyazide the same. Will continue to monitor. Assessment & Plan (12/22/2023 12:34 PM CDT): Stable on the current reimgen. WIll montior ersopnse. Reviewed glycmeic [id number] and will montior resopnse. Assessment & Plan (09/03/2023 2:07 PM DEICER REPAIRER): Normotensive. No changes. Will continue to monitor. Obstructive apnea 05/04/2018 Assessment & Plan (12/22/2023 12:34 PM CDT): Reviewe dimprot of nightly therapy and impact of untreated LYNDSAY. Assessment & Plan (09/26/2023 11:44 AM DEICER REPAIRER): Consider Oral appliance for sleep apnea Nightguard [...] Team Description 04/19/2025 6:15 PM CDT Therapy [facility] Physical Therapy - [place] [address] [place] [address] Kenyon Perez, PT 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 (Primary Dx); Chronic right shoulder pain 04/19/2025 Orders Only [facility] [address] [phone] Ángel Daniels MD 04/12/2025 Telephone [facility] [address] [phone] Ángel Daniels MD Call Back 04/08/2025 Orders Only [facility] [address] [phone] Ángel Daniels MD 04/04/2025 10:15 AM CDT Office Visit [facility] - [address] [place] [phone] Priscila Locke, DO Tongue leukoplakia (Primary Dx); Chronic eczematous otitis externa of left ear; Lesion of tongue 03/28/2025 Results Follow-Up [facility] [address] [phone] Ángel Daniels MD Comprehensive metabolic panel, Hemoglobin A1c, CBC with auto differential, Additional followed-up results: 4 03/22/2025 2:25 PM CDT Lab [facility] [address] [place] [phone] Controlled type 2 diabetes mellitus without complication, without long-term current use of insulin (HCC); Bilateral shoulder tendinopathy 03/22/2025 1:45 PM CDT Office Visit [facility] [address] [phone] Ángel Daniels MD Lesion of tongue (Primary Dx); Change in bowel movement; Encounter for screening mammogram for malignant neoplasm of breast; Type 2 diabetes mellitus with diabetic polyneuropathy, without long-term current use of insulin (HCC); Hypertension associated with diabetes (HCC); Type 2 diabetes mellitus with hyperlipidemia (HCC); Major depressive disorder, recurrent episode, moderate ([facility]); Morbid obesity with BMI of 50.0-59.9, adult ([facility]); BMI 50.0-59.9, adult ([facility]) 03/18/2025 10:45 AM CDT Therapy [address] [place] [address] Christelle Adan, PT 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 (Primary Dx); Chronic right shoulder pain 03/18/2025 Plan of Care Documentation [address] [place] [address] 03/16/2025 Orders Only [facility] [address] [phone] Ángel Daniels MD 03/14/2025 Nurse Triage [facility] [address] [phone] Ángel Daniels MD Controlled type 2 diabetes mellitus with hyperglycemia, without long-term current use of insulin (HCC) (Primary Dx) 01/31/2025 7:30 PM CDT Telemedicine [facility] Medical [facility] Virtual Care [address] [place] [phone] Edel Negrete, LITO Bilateral foot pain (Primary Dx) 01/31/2025 Nurse Triage [facility] [address] [phone] Ángel Daniels MD 01/25/2025 Orders Only [facility] Medical Group Primary Care at [address] [phone] Ángel Daniels MD 01/25/2025 Telephone [facility] Primary Care at [address] [phone] Ángel Daniels MD 01/24/2025 Telephone [facility] [address] [address] Ángel Daniels MD Authorization/Certifi cation 01/24/2025 Telephone [facility] [address] [address] Ángel Daniels MD Forms Request [...] on file Legal Sex Female 11:00 AM DEICER REPAIRER Gender Identity Female 05/20/2023 10:41 PM CDT [...] HEPATITIS PANEL, ACUTE Routine 10/16/2022 3:30 PM DEICER REPAIRER Screening examination for STD (sexually transmitted disease) [...] was last reviewed 2021. Testing performed by: [address], [address] Blood 03/22/2025 2:23 PM CDT 03/22/2025 7:51 PM CDT us Ángel Daniels MD LAB BLOOD ORDERABLES Siobhan valdoivnos Result RENAN VALER[facility] ([place]) 1 [facility] Department [place] [address] * Differential, auto (03/22/2025 2:23 PM CDT) Neutrophil abs 5.85 1.50 - 6.50 K/cumm Comment:Testing performed by : [address], [address] Imm gran abs 0.02 0.00 - 0.10 K/cumm [facility] ([place]) Comment:Testing performed by : [address], [address] Lymphocyte abs 3.04 0.80 - 3.30 K/cumm [facility] ([place]) Comment:Testing performed by : [address] [address] Monocyte abs 0.48 0.20 - 0.80 K/cumm [facility] ([place]) Comment:Testing performed by : [address] [address] Eosinophil abs 0.17 0.00 - 0.50 K/cumm [facility] ([place]) Comment:Testing performed by : [address] [address] Basophil abs 0.06 0.00 - 0.10 K/cumm [facility] ([place]) Comment:Testing performed by : [facility], [address] [place] [address]., [address] Neutrophil pct 60.8 % [facility] ([place]) Comment: Interpretive Data Percent cell count reference ranges are not reported, since discordance with absolute values may lead to misinterpretation of CBC data. Current Interpretive Data was last revised on 2017. Testing performed by: [facility], [address] [place] [address], [id number] Imm gran pct 0.2 % [facility] ([place]) Comment: Interpretive Data Percent cell count reference ranges are not reported, since discordance with absolute values may lead to misinterpretation of CBC data. Current Interpretive Data was last revised on 2017. Testing performed by: [facility], [address] [place] [address]., [address] Lymphocyte pct 31.6 % [facility] ([place]) Comment: Interpretive Data Percent cell count reference ranges are not reported, since discordance with absolute values may lead to misinterpretation of CBC data. Current Interpretive Data was last revised on 2017. Testing performed by: [address] [address] Monocyte pct 5.0 % [facility] ([place]) Comment: Interpretive Data Percent cell count reference ranges are not reported, since discordance with absolute values may lead to misinterpretation of CBC data. Current Interpretive Data was last revised on 2017. Testing performed by: [facility], [address] [place] [address]., [address] Eosinophil pct 1.8 % [facility] ([place]) Comment: Interpretive Data Percent cell count reference ranges are not reported, since discordance with absolute values may lead to misinterpretation of CBC data. Current Interpretive Data was last revised on 2017. Testing performed by: [address] [address] Basophil pct 0.6 % [facility] ([place]) Comment: Interpretive Data Percent cell count reference ranges are not reported, since discordance with absolute values may lead to misinterpretation of CBC data. Current Interpretive Data was last revised on 2017. Testing performed by: [address], [address] Blood 03/22/2025 2:23 PM CDT 03/22/2025 7:41 PM CDT us Ángel Daniels MD LAB BLOOD ORDERABLES Siobhan l Result [facility] ([place]) 1 [facility] Department [place] [address] * (ABNORMAL) CBC with auto differential (03/22/2025 2:23 PM CDT) WBC 9.62 3.80 - 9.90 K/cumm Comment:Testing performed by : [address], [address] Hgb 11.3(L) 11.9 - 15.5 g/dL [facility] ([place]) Comment:Testing performed by : [address], [address] Hct 36.8 35.6 - 45.5 % [facility] ([place]) Comment:Testing performed by : [address], [address] Plt 229 150 - 400 K/cumm [facility] ([place]) Comment:Testing performed by : [address], [address] MPV 12.0 9.1 - 12.3 fL [facility] ([place]) Comment:Testing performed by : [address], [address] RBC 4.37 3.90 - 5.20 M/cumm [facility] ([place]) Comment:Testing performed by : [address], [address] MCV 84.2 81.3 - 96.4 fL [facility] ([place]) Comment:Testing performed by : [address], [address] MCH 25.9(L) 27.1 - 33.3 pg [facility] ([place]) Comment:Testing performed by : [address], [place]., [address] MCHC 30.7(L) 32.3 - 35.7 g/dL [facility] ([place]) Comment:Testing performed by : [facility], [address] [place] [address], [address] RDW CV 14.6 11.1 - 14.9 % [facility] ([place]) Comment:Testing performed by : [facility], [address] [place] [address], [address] RDW SD 44.8 35.7 - 48.1 fL [facility] ([place]) Comment:Testing performed by : [facility], [address] [place] [address], [address] NRBC abs 0.00 0.00 - 0.01 K/cumm [facility] ([place]) Comment:Testing performed by : [facility], [address] [place] [address], [id number] Blood 03/22/2025 2:23 PM CDT 03/22/2025 7:41 PM CDT us Ángel Daniels MD LAB BLOOD ORDERABLES Siobhan l Result RENAN [facility] ([place]) 1 [facility] [place] [address] * (ABNORMAL) Erythrocyte sedimentation rate (03/22/2025 2:23 PM CDT) Erythrocyte sedimentation rate 33(H) 1 - 20 mm/hr Comment:Testing performed by : [facility], [address] [place] [address], [id number] Blood 03/22/2025 2:23 PM CDT 03/22/2025 7:41 PM CDT Ángel Daniels MD LAB BLOOD ORDERABLES Siobhan l Result [facility] ([place]) 1 [facility] [place] [address] * (ABNORMAL) Hemoglobin A1c (03/22/2025 2:23 PM CDT) Hgb A1C 8.4(H) 4.0 - 5.6 % Comment:Testing performed by : [facility], [address] [place] [address]., [address] Estimated Average Glucose 194 mg/dL [facility] ([place]) Comment: The ADA recommends reporting an estimated Average Glucose (eAG) with all Hemoglobin A1c results using the equation derived from a study of 507 normal and diabetic adults. Minority populations were underrepresented and children were not included. (Diabetes Care 31:7184-8440, 2008). The eAG is not equivalent to a fasting glucose. Testing performed by: [facility], [address] [place] [address]., [address] Blood 03/22/2025 2:23 PM CDT 03/22/2025 7:41 PM CDT Ángel Daniels MD LAB BLOOD ORDERABLES Siobhan valdovinos Result [facility]NAN [facility]ERIO ([place]) 1 [facility] Department [place] [address] * (ABNORMAL) Lipid panel (03/22/2025 2:23 PM CDT) Pathologist [facility] Cholesterol 203(H) 30 - 199 mg/dL Comment: [...] last revised on 2018. Testing performed by: [facility], [address] [place] [address]., [address] Triglycerides 231(H) <=149 mg/dL [facility] ([place]) [...] last revised on 2018. Testing performed by: [facility], [address] [place] [address]., [address] HDL 44 >=40 mg/dL [facility] ([place]) [...] last revised on 2018. Testing performed by: [facility], [address] [place] [address]., [address] LDL, calculated 119 <=129 mg/dL RENAN VALERIO [...] last revised on 2024. Testing performed by: [address] [address] Non-HDL Cholesterol 159 mg/dL [facility] ([place]) [...] last revised on 2018. Testing performed by: [address] [address] Chol/HDL ratio 5 ARTEMIO [facility] ([place]) Comment:Testing performed by : [address] [address] Blood 03/22/2025 2:23 PM CDT 03/22/2025 7:41 PM CDT Ángel Daniels MD LAB BLOOD ORDERABLES Siobhan l Result [facility]N [facility] ([place]) 1 [facility] Department [place] [address] * Comprehensive metabolic panel (03/22/2025 2:23 PM CDT) Sodium 137 135 - 145 mmol/L Comment:Testing performed by : [address] [address] Potassium, pl 3.8 3.3 - 4.9 mmol/L [facility] ([place]) Comment:Testing performed by : [address] [address] Chloride 100 97 - 110 mmol/L [facility] ([place]) Comment:Testing performed by : [address] [address] CO2 26 22 - 32 mmol/L [facility] ([place]) Comment:Testing performed by : [address], [address] Anion gap 11 2 - 15 mmol/L [facility] ([place]) Comment:Testing performed by : [address], [address] BUN 24 6 - 25 mg/dL [facility] ([place]) Comment:Testing performed by : [address], [address] Creatinine 0.91 0.60 - 1.10 mg/dL [facility] ([place]) Comment:Testing performed by : [address], [address] Glucose 137 70 - 199 mg/dL CERNER [...] was last revised 2022. Testing performed by: [address], [address] Calcium 9.5 8.5 - 10.3 mg/dL [facility] ([place]) Comment:Testing performed by : [address], [address] Bilirubin, total 0.2 0.1 - 1.2 mg/dL [facility] ([place]) Comment:Testing performed by : [address], [address] Protein, pl 7.7 6.5 - 8.5 g/dL [facility] ([place]) Comment:Testing performed by : [address], [address] Albumin 3.8 3.5 - 5.0 g/dL [facility] ([place]) Comment:Testing performed by : [address] [place]., [address] Alk phos 57 40 - 130 Units/L RENAN [facility] ([place]) Comment:Testing performed by : [facility], [address] [place] [address]., [address] ALT 12 7 - 45 Units/L RENAN [facility] ([place]) Comment:Testing performed by : [facility], [address] [place] [address], [address] AST 25 10 - 45 Units/L RENAN [facility] ([place]) Comment:Testing performed by : [facility], [address] [place] [address]., [address] Blood 03/22/2025 2:23 PM CDT 03/22/2025 7:41 PM CDT Ángel Daniels MD LAB BLOOD ORDERABLES Siobhan l Result Performing Organization Address [facility] Co de Phone Number RENAN [facility] ([place]) 1 [facility] Department [place] [address] * Albumin Creatinine Ratio, Urine (12/22/2023 12:00 [...] ORDERABLES Siobhan l Result Performing Organization Address City/[facility]/ZIP Co de Phone Number [facility] [address] [facility] Department of Laboratories [place], [place] [id number] * Hepatitis panel, acute (10/16/2022 3:30 PM DEICER REPAIRER) Hep A IgM Nonreactive Nonreactive [facility] ([place]) Comment: Interpretive Data: If Hep A IgM Ab is reported as Equivocal, a new sample should be drawn in two weeks for testing. Current interpretive data was last revised on 19. Testing performed by: [facility], [address] [place] [address]., [address] Hep B core IgM Nonreactive Nonreactive C JAROD [facility] ([place]) Comment: Interpretive Data If HepB Core IgM Ab is reported as Equivocal, a new sample should be drawn in two weeks for testing. Current interpretive data was last revised on 19. Testing performed by: [facility], [address] [place] [address]., [address] Hep C Ab Nonreactive Nonreactive RENAN VALERIO [...] last revised on 2019. Testing performed by: [facility], [address] [place] [address]., [address] HepBsAg Nonreactive Nonreactive [facility] ([place]) Comment:Testing performed by : [address] [address] Blood 10/16/2022 3:30 PM DEICER REPAIRER 10/16/2022 9:24 PM DEICER REPAIRER Ángel Daniels MD LAB MICROBIOLOGY - GENERA L ORDERABLES Final Result [facility] ([place]) 1 [facility] Department [place] [address] * SCREENING MAMMOGRAM BILATERAL W [...] suspicious findings in either breast. Jl Fleming MANAGER OF CHANGE IMG MAMMO PROCEDURES Final Result from Last 3 Months or Most Recently Relevant to Health Maintenance Insurance [facility] Care Teams Family Resource Management Specialist Relationship Specialty Start Date End Date Ángel Daniels MD [address] [place] [address] PCP - General Family Medicine 12/14/21 Cristhian Cabrera MD [address] [facility] [phone] [place] [address] Referring Physician General Surgery 04/08/18 Nhung Fajardo PT Physical Therapist Physical Therapy 04/16/18
--- OUTSIDE RECORDS SUMMARY | 2025-04-21 23:34 | XMS_ITS | Clinical Summary ---
Author Organization [facility] [employer] Address [address] [place] [address] Care Team Providers Care Director Quality Systems Name Role Phone Unavailable Primary Care Provider Unavailabl e Source Comments [facility] [employer],non-owned Affiliates and Associated Physician Practices is amultiple site organization consisting of ambulatory clinics and hospital sitesin [place], [place], [place] and [place]. This disclosure is being madepursuant to the Care Everywhere program and may not contain all information available regarding this patient. Last updated 18.[facility] [employer] Allergies Active Allergy Reactions Criticality Noted Date [...] - 6.3 % 03/07/2017 5:22 AM CDT [facility] Estimated Average Glucose 154 mg/dL 03/07/2017 5:22 AM CDT [facility] Whole Blood BLOOD SPECIMEN WITH EDTA / Unknown 03/07/2017 4:13 AM CDT 03/07/2017 4:45 AM CDT us Rhonda Mcallister ENTRY ENGINEER-CHURN OPERATOR [facility] - CHEMISTRY ORDERA BLES Final Result [facility] [address] [place] [address] * (ABNORMAL) BASIC METABOLIC PANEL (CALCIUM TOTAL) (03/07/2017 4:13 AM CDT) Pathologist [facility] Glucose 118(H) 74 - 106 mg/dL 03/07/2017 5:07 AM CDT [facility] Sodium 138 136 - 145 mmol/L 03/07/2017 5:07 AM CDT [facility] Potassium 3.5 3.5 - 5.1 mmol/L 03/07/2017 5:07 AM T [facility] Chloride 104 98 - 107 mmol/L 03/07/2017 5:07 AM CDT [facility] CO2 25 22 - 31 mmol/L 03/07/2017 5:07 AM CDT [facility] Calcium 8.7 8.5 - 10.1 mg/dL 03/07/2017 5:07 AM T [facility] Anion Gap 9 8 - 16 mmol/L 03/07/2017 5:07 AM CDT [facility] BUN 13 7 - 21 mg/dL 03/07/2017 5:07 AM T [facility] Creatinine 0.75 0.50 - 1.30 mg/dL 03/07/2017 5:07 AM T [facility] eGFR by MDRD >60 >60 mL/min/1.7 3m2 03/07/2017 5:07 AM T [facility] eGFR by MDRD >60 >60 mL/min/1.7 3m2 03/07/2017 5:07 AM CDT [facility] Blood BLOOD SPECIMEN / Unknown 03/07/2017 4:13 AM CDT 03/07/2017 4:45 AM CDT us Rhonda Vega Esvin ENTRY ENGINEER-CHURN OPERATOR [facility] - CHEMISTRY ORDERA BLES Final Result Performing Organization Address City/State/[facility] Co de Phone Number [facility] [address] [place] [address] from Last 3 Months or Most Recently Relevant to Health Maintenance Insurance [facility] Advance Directives * Full Code (Latest Code Status on File) Date Activated Date Inactivated Comments 03/06/2017 4:50 PM 03/07/2017 4:48 PM
[2025-04-21 23:37] VITALS: BP 110/71; PULSE 67; RESP 18; O2SAT 99
== END 2025-04-21 23:38 | disposition home or self-care (01) ==
PROVIDERS: Emergency Provider Emergency Medicine; PCP Family Medicine
DX: S02.5XXA Fracture of tooth (traumatic), initial encounter for closed fracture (principal); I10 Essential (primary) hypertension; E11.9 Type 2 diabetes mellitus without complications; G47.30 Sleep apnea, unspecified; Z87.891 Personal history of nicotine dependence; Z79.899 Other long term (current) drug therapy; X58.XXXA Exposure to other specified factors, initial encounter
CPT/HCPCS: 99282; A9270